=== PATIENT | female | born 1950 | race Caucasian/White ===

== ENCOUNTER 2017-01-26 04:07 | Emergency (ER) | payer OTHER ==
[~2017-01-26] VITALS: Ht 152.4 cm; Wt 76.2 kg
[~2017-01-26 04:07] MED LIST: ACETAMINOPHEN325 M1 PO; ASA5UEC PO; ASPIRIN325 PO; ASPIRIN81 M2 PO; BENADRYL25 MG PO; BREO ELLIPTA 11 EACH IH; CLARITIN10 MG PO; CLOPIDOGREL75 MG PO; COLACE100 MG PO; EFFIENT10 MG PO; KEFLEX500 MG PO; LIPITOR80 MG PO; LISINOPRIL10 MG PO; LISINOPRIL20 MG PO; LOPRESSOR PO; LOPRESSOR25 PO; LOVASTATIN 20 M20 MG PO; MEDROLDOSEPACK PO; METOPROLOL SUCC25 M1 PO; NITRO-DUR 10 C0.2 M1 TRANSDERM; NITROGLYCERIN0.4 MG SUBLING; NORVASC 5 MG TAB5 MG PO; NORVASC5 MG PO; PEPCID20 MG PO; PEPCID40 MG PO; PREDNISONE 10 M10 MG PO; TOPROL XL25 MG PO; TUDORZA PRESS400 MCG IH; ULTRAM 50MG TAB50 MG PO; ZOCOR PO
[2017-01-26] MEDS ORDERED: SPIRIVA (04:19)
[2017-01-26] MEDS ORDERED: LOPRESSOR50 (04:21)
[2017-01-26] MEDS ORDERED: NORVASC10 MG PO (04:22)
[2017-01-26] MEDS ORDERED: LASIX 20 MG TAB20 MG PO (04:23)
[2017-01-26 04:50] LABS: URINE BILIRUBIN NEGATIVE (Negative); URINE BLOOD 1+ (Negative); URINE COLOR YELLOW; URINE GLUCOSE-RANDOM* NEGATIVE (Negative); URINE KETONES NEGATIVE (Negative); URINE LEUKOCYTES-REFLEX 1+ (Negative); URINE PROTEIN (DIPSTICK) NEGATIVE (Negative); URINE UROBILINOGEN 0.2 E.U./dl (0.2-1.0)
[2017-01-26 05:19] LABS: CASTS None Seen /LPF (None Seen); CRYSTALS None Seen /LPF (None Seen); SQUAMOUS None Seen /LPF (0-3); URINE RBC 3-10 Few /HPF (0-2); URINE WBC-REFLEX 6-15 Few /HPF (0-5)
[2017-01-26 05:28] LABS: ABSOLUTE NEUTROPHILS 7.7 thou/uL (1.4-8.2); BASOPHILS 1.1 % (0.0-2.0); HEMOGLOBIN 12.3 gm/dL (12.0-15.0); LYMPHOCYTES 15.3 % (24.0-44.0); MCH 27.5 pg (26.0-34.0); MCHC 33.2 g/dL (28.0-37.0); MCV 82.9 fL (80.0-100.0); MONOCYTES 11.6 % (1.0-8.0); PLATELET COUNT 286 thou/uL (150-400); RBC 4.47 mil/uL (4.20-5.00); RDW 14.1 % (10.5-14.5); WBC 11.2 thou/uL (4.0-11.0)
[2017-01-26 05:30] LABS: MANUAL DIFF NO
[2017-01-26 05:40] LABS: ALBUMIN 3.4 g/dL (3.4-5.0); ALKALINE PHOSPHATASE 89 U/L (46-116); ANION GAP 9 mmol/L (7-16); BUN 27 mg/dL (7-18); CALCIUM 10.2 mg/dL (8.5-10.1); CHLORIDE 102 mmol/L (98-107); CO2 29 mmol/L (21-32); CREATININE 2.1 mg/dL (0.6-1.3); DIRECT BILIRUBIN < 0.1 mg/dL (<0.1-0.3); GLUCOSE 149 mg/dL (70-99); POTASSIUM 4.1 mmol/L (3.5-5.1); SGOT 18 U/L (15-37); SGPT 15 U/L (30-65); SODIUM 140 mmol/L (136-145); TOTAL BILIRUBIN 0.3 mg/dL (<0.1-1.0); TOTAL PROTEIN 7.9 g/dL (6.4-8.2)
[2017-01-26] MEDS ORDERED: PHENERGAN 25 MG25 M1 PO (07:12)
[2017-01-26] MEDS ORDERED: ZOFRAN ODT4 MG PO (07:12)
[2017-01-26] MEDS ORDERED: NORCO 5-325 TA1 EACH PO (07:12)
== END 2017-01-26 07:25 | disposition home or self-care (01) ==
LOC: ER 04:07
PROVIDERS: Emergency Medicine
DX: N28.9 Disorder of kidney and ureter, unspecified (principal); Z98.890 Other specified postprocedural states; Z90.710 Acquired absence of both cervix and uterus; Z95.1 Presence of aortocoronary bypass graft; J44.9 Chronic obstructive pulmonary disease, unspecified; Z88.8 Allergy status to other drugs, medicaments and biological substances; Z88.0 Allergy status to penicillin; Z88.2 Allergy status to sulfonamides; I25.2 Old myocardial infarction; Z91.040 Latex allergy status; F17.210 Nicotine dependence, cigarettes, uncomplicated

== ENCOUNTER 2017-02-08 12:43 | Emergency (ER) | payer OTHER ==
[~2017-02-08] VITALS: Ht 152.4 cm; Wt 75.8 kg
[~2017-02-08 12:43] MED LIST changes: +LASIX 20 MG TAB20 MG PO; +LOPRESSOR50; +NORCO 5-325 TA1 EACH PO; +NORVASC10 MG PO; +PHENERGAN 25 MG25 M1 PO; +SPIRIVA; +ZOFRAN ODT4 MG PO
[2017-02-08] MEDS ORDERED: PRILOSEC 20 MG20 MG PO (12:55)
[2017-02-08] MEDS ORDERED: ASPIRIN81 M2 PO (12:56)
== END 2017-02-08 14:08 | disposition home or self-care (01) ==
LOC: ER 12:43
DX: H11.31 Conjunctival hemorrhage, right eye (principal); I25.2 Old myocardial infarction; G56.03 Carpal tunnel syndrome, bilateral upper limbs; J44.9 Chronic obstructive pulmonary disease, unspecified; Z90.710 Acquired absence of both cervix and uterus; Z95.1 Presence of aortocoronary bypass graft; Z90.49 Acquired absence of other specified parts of digestive tract; Z88.1 Allergy status to other antibiotic agents; Z88.2 Allergy status to sulfonamides; Z91.040 Latex allergy status; Z87.891 Personal history of nicotine dependence

== ENCOUNTER 2018-03-28 08:55 | Inpatient (IN) | payer OTHER ==
[~2018-03-28] VITALS: Ht 152.4 cm; Wt 75.7 kg
--- NOTE | ~2018-03-28 | EKG ---
[place] [address] [facility] [place] [address] ELECTROCARDIOGRAM REPORT Name: MARTAMARY Room #: 209-P ADM IN .R.#: [id number] Admission: 03/28/18 Attend Phys: Joshua Cummins MD Discharge: Date of : 50 Report #: [id number] THIS REPORT FOR: //name// [facility] ED Test Date: 2018-03-28 Test Time: 09:03:39 Pat Name: MARY LOZANO Department: Room: Gender: F [employer]: at : 1950 Requested By: Miroslava Polo Order Number: [id number] MD: Dario Rocha Measurements Intervals [place] Rate: 151 P: CT: QRS: -167 QRSD: 118 T: 27 QT: 306 QTc: 486 Interpretive Statements Atrial fibrillation with rapid V-rate RBBB and LPFB Baseline wander in lead(s) I,II,aVR Compared to ECG 07/08/2016 06:57:27 atrial fibrillation has replaced sinus rhythm ST and T wave abnormality is less pronounced Electronically Signed On 03-28-2018 16:27:14 CDT by Dario Rocha [email or web address] <ELECTRONICALLY SIGNED> By: Dario Rocha MD, [facility] 03/28/18 1627 Dario Rocha MD, [facility] /EPI
--- NOTE | ~2018-03-28 | P ---
[facility] [place] [address] PROCEDURE REPORT Name: JACEY LOZANOEZ Morales Room #: 209-P [facility] IN ..#: [id number] Admission: 03/28/18 Attend Phys: Joshua Cummins MD Discharge: Date of : 50 Report #: [id number] THIS REPORT FOR: //name// CC: Tuan Leung BRIEF HISTORY: The patient is a 68-year-old woman with a history of colon cancer resection 10 years ago. She presented with microcytic anemia. CT reveals an abnormal appearance at the level of the ileocolonic anastomosis with regional adenopathy. PREOPERATIVE DIAGNOSIS: History of colon cancer with anemia. POSTOPERATIVE DIAGNOSES: 1. Ulcerated mass lesion ileocolonic anastomosis. 2. Moderate sigmoid diverticulosis coli. MEDICATIONS: Deep sedation with propofol per anesthesia. SPECIMEN: Biopsies of ulcerated mass ileocolonic anastomosis. ESTIMATED BLOOD LOSS: 3 mL. PROCEDURE: Colonoscopy to the ileocolonic anastomosis and ileum with biopsy. FINDINGS: Prior to propofol sedation, procedure of colonoscopy discussed with the patient as well as potential risks and its complications. She indicates she understands and desires to proceed. With the patient in the left lateral decubitus position, digital examination was completed which revealed no abnormalities. Subsequently, the GetJari video colonoscope was introduced in the rectum, advanced under direct vision to the ileocolonic anastomosis. I was able to advance the scope into the ileum and see normal ileal mucosa. At that point, the scope was slowly withdrawn and careful circumferential views were obtained. We withdrew the scope back into the colon and she had an ulcerative mass lesion just distal to the anastomosis, which was ulcerated and filled about one-third of the lumen involving about one-half of the circumference of the colon. It was essentially ulcerated and multiple biopsies were obtained. Active bleeding was not seen. As we withdrew the scope, the prep was generally good. The mucosa was within normal limits, normal vascular pattern and normal light reflex. No additional neoplastic changes were seen. However, in the sigmoid colon, there was noted be moderate to severe diverticular disease without endoscopic evidence of diverticulitis. The scope was withdrawn in the rectum. Upon retroflexion, no abnormalities were seen. The scope was withdrawn. The patient tolerated the procedure well. [address] [address] PROCEDURE REPORT Name: MARTAMARY Room #: 209-P [facility] IN ..#: [id number] Admission: 03/28/18 Attend Phys: Joshua Cummins MD Discharge: Date of : 50 Report #: [id number] DISPOSITION: The patient with history of colon cancer and microcytic anemia. 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 We will follow up on biopsies. The patient will likely need surgical intervention. The patient reports last colonoscopy was about 5 years. I do not have those records. Withdrawal time after biopsy from the anastomosis was 5 minutes and 6 seconds. <ELECTRONICALLY SIGNED> By: Temo Watts MD 04/03/18 1046 1357 2331 Temo Watts MD /nt
--- NOTE | ~2018-03-28 | 2DMMODE ---
[facility] [address] [place] [address] 2 D/M-MODE ECHOCARDIOGRAM Name: MARY LOZANO Room #: 209-P [facility] IN [facility]#: [id number] Admission: 03/28/18 Attend Phys: Joshua Cummins MD Discharge: Date of : 50 Date of Service: 03/28/18 1702 Report #: [id number] THIS REPORT FOR: //name// APPROVED REPORT Study performed: 03/28/2018 14:51:30 EXAM: Comprehensive 2D, Doppler, and color-flow Echocardiogram Patient Location: Bedside Room #: 209 Status: routine BSA: 1.72 HR: 100 bpm BP: 149/71 mmHg Rhythm: Atrial Fibrillation Other Information Study Quality: Adequate Indications Afib. Hx: MN, stents, CABG, COPD, HTN, HLP, DM 2D Dimensions RVDd: 36.53 mm LVEF(%): 58.74 (>50%) IVSd: 11.79 (7-11mm) LVOT Diam: 19.36 (18-24mm) LVDd: 45.66 mm PWd: 11.92 (7-11mm) Ascending Ao: 29.72 (22-36mm) LVDs: 31.52 (25-40mm) Aortic Root: 30.05 mm Corona's LVEF: 58.74 % Volumes Left Atrial Volume (Systole) Single Plane 4CH: 38.28 mL Single Plane 2CH: 37.61 mL LA ESV Index: 24.00 mL/m2 Aortic Valve AoV Peak Rajendra.: 1.61 m/s AO Peak Gr.: 12.71 mmHg LVOT Max P.88 mmHg LVOT Max V: 0.98 m/s LIYA Vmax: 1.79 cm2 Mitral Valve MV Decel. Time: 153.75 ms MV E Max Rajendra.: 1.20 m/s [facility] [place] [address] 2 D/M-MODE ECHOCARDIOGRAM Name: MARY LOZANO Room #: 209-P [facility]#: [id number] Admission: 03/28/18 Attend Phys: Joshua Cummins MD Discharge: Date of : 50 Date of Service: 03/28/18 1702 Report #: [id number] Pulmonary Valve PV Peak Rajendra.: 1.14 m/s PV Peak Gr.: 5.23 mmHg Tricuspid Valve TR Peak Rajendra.: 2.70 m/s RAP Estimate: 5.00 mmHg TR Peak Gr.: 28.00 mmHg PA Pressure: 33.00 mmHg Left Ventricle The left ventricle is normal size. Basal inferior hypokinesis, otherwise normal Mild concentric left ventricular hypertrophy. Left ventricular systolic function is normal. LVEF is 55-60%. This study is not technically sufficient to allow evaluation of the LV diastolic function due to atrial fibrillation. Right Ventricle The right ventricle is normal size. The right ventricular systolic function is normal. Atria The left atrium size is normal. The right atrium size is normal. Aortic Valve Aortic valve is mildly calcified. No aortic regurgitation is present. There is no aortic valvular stenosis. Mitral Valve The mitral valve is normal in structure. Mild mitral annular calcification. Trace mitral regurgitation. Tricuspid Valve The tricuspid valve is normal in structure. Mild to moderate tricuspid regurgitation. Estimated PAP is 30-35mmHg. Pulmonic Valve The pulmonary valve is normal in structure. Trace pulmonic regurgitation. Great Vessels The aortic root is normal in size. The ascending aorta is normal in size. IVC is normal in size and collapses >50% with inspiration. Pericardium [address] [address] 2 D/M-MODE ECHOCARDIOGRAM Name: MARY LOZANO Room #: 209-P [facility] IN ..#: [id number] Admission: 03/28/18 Attend Phys: Joshua Cummins MD Discharge: Date of : 50 Date of Service: 03/28/18 1702 Report #: [id number] There is no pericardial effusion. <Conclusion> LVEF is 55-60%. Basal inferior hypokinesis, otherwise normal Mild concentric left ventricular hypertrophy. Aortic valve is mildly calcified. No aortic regurgitation is present. There is no aortic valvular stenosis. Trace mitral regurgitation. <ELECTRONICALLY SIGNED> By: Enrike Galaviz MD, [facility] 03/28/181701 01 01 Enrike Galaviz MD, FAC /INF
--- NOTE | ~2018-03-28 | HC ---
[facility] [place] [address] CONSULTATION Name: MARY LOZANO Andrew Room #: 209-P ADM IN .R.#: [id number] Admission: 03/28/18 Attend Phys: Joshua Cummins MD Discharge: Date of : 50 Report #: [id number] THIS REPORT FOR: //name// CC: Tuan Cummins DATE OF SERVICE: 03/28/2018 Inpatient Consultation PRIMARY CARE PHYSICIAN: Tuan Vidales DO DOCUMENT IMPROVEMENT SPECIALIST: Bossman Nicole MD, [facility] REASON FOR CONSULTATION: AFib, preop endoscopy. HISTORY OF PRESENT ILLNESS: The patient is a 68-year-old female with a history of prior bypass surgery, presented with atrial fibrillation, heart rates in the 160s and dyspnea. She was noted to be in atrial fibrillation. She has a right bundle-branch block, baseline ECG abnormality. She was admitted for treatment of this and was found to be anemic and ultimately her CT scan of the abdomen demonstrated irregular thickening at the ileocolic anastomosis to the prior site of colon cancer and there was adenopathy noted. We are asked to see her because she will likely require endoscopy. Clinically, she denies abdominal pain. She denies melena or hematochezia. From a cardiovascular standpoint, she has been short of breath with activity. She denies chest pain or pressure. She denies palpitations or heart racing type symptoms. She has no documented history of stroke or TIA. Denies neuro symptoms, slurred speech, numbness or weakness. PAST MEDICAL HISTORY: Significant for the following: Coronary artery disease, status post bypass surgery in 2010, prior PCI in 2014 with drug-eluting stent placed at that time and then separately again in 2015, she had a PCI to her [place] right coronary artery. The vein graft to the diagonal was noted to be chronically occluded. She was anticoagulated only with aspirin at the time of presentation. She has hypertension, hyperlipidemia, and obesity as above, prior history of colon cancer. PAST SURGICAL HISTORY: Prior colectomy bypass surgery, hand surgery, hysterectomy. [address] [address] CONSULTATION Name: MARY LOZANO Room #: 209-P [facility] IN ..#: [id number] Admission: 03/28/18 Attend Phys: Joshua Cummins MD Discharge: Date of : 50 Report #: [id number] She is type 2 diabetic. ALLERGIES: She has allergies to PLAVIX, which is hives; PENICILLIN, PREDNISONE - hives. BRILINTA made her short of breath. ZOLPIDEM makes her have hives. CELEBREX, LATEX, and SULFA also give her itching. HOME MEDICATIONS: Currently, she is on aspirin, garlic, lisinopril 20 mg p.o. b.i.d., Lopressor 25 mg p.o. b.i.d., nitroglycerin p.r.n., Prilosec 40 mg daily, Januvia 50 mg daily, atorvastatin 40 mg daily; and HCTZ/triamterene 37.5/25 mg daily. REVIEW OF SYSTEMS: GASTROINTESTINAL: No abdominal pain, nausea, vomiting, hematemesis or melena. HEMATOLOGIC: Positive history of mild anemia. RENAL: No history of kidney failure. ENDOCRINE: Positive diabetes, positive hypertension, positive hyperlipidemia. CARDIOVASCULAR: No chest pain. No palpitations. Positive dyspnea on exertion. No orthopnea, no PND. No edema. MUSCULOSKELETAL: No falls. HEMATOLOGIC: No anemia or bleeding disorders. NEUROLOGIC: Denies visual changes, numbness, weakness or slurred speech. ALLERGIES: As noted above, numerous cutaneous allergies. PHYSICAL EXAMINATION: VITAL SIGNS: Blood pressure is 135/61, pulse is 104. She is in atrial fibrillation on the potline monitor, temperature is 37.4. GENERAL: Pleasant elderly female. She is alert, oriented, no apparent distress. HEENT: Eyes: EOMs intact. No facial asymmetry. NECK: Supple. No jugular venous distention. CARDIOVASCULAR: Irregular. I cannot hear murmur. LUNGS: Clear to auscultation bilaterally. There are no wheezes or rales. ABDOMEN: Nontender, nondistended. EXTREMITIES: No peripheral edema. SKIN: Warm and dry. PSYCHIATRIC: The patient has appropriate mood and affect. No focal deficits. DIAGNOSTIC DATA: Electrocardiogram demonstrates atrial fibrillation with a right ventricular branch, conduction abnormality. DATA: Hemoglobin is 10.2, white blood count is 18.6, platelet count 333,000. Sodium is 140, potassium is 3.8, chloride is 106, BUN is 8, creatinine 0.9, A1c is 7.5, lactic acid is 1.0. AST is 13, ALT is 24. CT scan of the abdomen demonstrated concern for splenic infarct and there is [address] [address] CONSULTATION Name: MARY LOZANO Room #: 209-P [facility] IN M.R.#: [id number] Admission: 03/28/18 Attend Phys: Joshua Cummins MD Discharge: Date of : 50 Report #: [id number] also erratic irregular thickening of the ascending colon just superior and medial to the ileocolic anastomosis with lymphadenopathy concerning for metastatic disease and colon neoplasm. Cardiac troponin level IS 0.04. Hemoglobin is 10.2. Chest x-ray shows minor left basilar lateral stranding. IMPRESSION: 1. Atrial fibrillation with rapid ventricular response. She has been dyspneic on presentation, but with rate control, this has stabilized. She is currently on IV Cardizem drip, which is okay to continue to be titrated during endoscopy, but I will go ahead and start her on oral Cardizem if she is able to take p.o. At this point in time, there are no plans for cardioversion and we will continue with rate control strategy. 2. Coronary artery disease. She is status post coronary artery bypass graft and subsequent percutaneous coronary intervention, but denies any angina type symptoms. We will continue with medical therapy for this. 3. Status post coronary artery bypass graft. Historically, she has normal left ventricular function. She presents with no evidence of congestive heart failure. I would like to continue baby aspirin at some point. 4. Right bundle-branch block, this is chronic. 5. Preoperative colon endoscopy. I would estimate her to be relatively low risk for endoscopy. 6. Anticoagulation. Her CHADS-VASc score is 4 and she represents a high stroke risk and she has evidence of splenic infarct. I will like to do a conservative Lovenox bridge prior to endoscopy if it is going to be more than a couple of days. Ultimately, I think she should be on Eliquis. 7. Colon cancer abnormality. As noted above, there is concern that there may be a return of her previously treated malignancy. <ELECTRONICALLY SIGNED> By: Enrike Galaviz MD, [facility] 04/03/18 0930 1642 002 Enrike Galaviz MD, FACC /nt
--- NOTE | ~2018-03-28 | HC ---
[facility] [place] [address] CONSULTATION Name: MARY LOZANO Room #: 209-P [facility] IN ..#: [id number] Admission: 03/28/18 Attend Phys: Joshua Cummins MD Discharge: Date of : 50 Report #: [id number] THIS REPORT FOR: //name// CC: Tuan Cummins DATE OF SERVICE: 04/02/2018 HISTORY OF PRESENT ILLNESS: This patient seen in consultation in regard to possible recurrent colon cancer. She presented to the emergency room with findings of tachycardia and was found to be anemic and in atrial fibrillation. In evaluation of her anemia, CAT scan was performed, which showed irregular thickening at the ileocolic anastomosis and a prior site of colon cancer resection. In addition, there was increased lymphadenopathy. She was unaware of any noted GI blood loss. In 2007, she underwent a colon resection by Dr. Martin and was seen in consultation by Dr. Lozano who did not recommend adjuvant therapy. She was not seen subsequently in followup and to her knowledge, she has not had serial CEAs performed. She did undergo colonoscopy some 4 years ago, which she states removed a polyp, but was not showing any evidence of malignancy. PAST MEDICAL HISTORY: Also positive for coronary artery disease with previous bypass grafting and a drug-eluting stent placed in 2015. She has medically managed hypertension and hyperlipidemia. She has exogenous obesity and prior hysterectomy along with hand surgery. ALLERGIES: PLAVIX, PENICILLIN, BRILINTA, ZOLPIDEM, CELEBREX, LATEX, AND SULFA. MEDICATIONS: As listed on the MFR. REVIEW OF SYSTEMS: Negative for any noted abdominal pain or blood loss. She was again found to be anemic on presentation to the emergency room. Remaining system review is negative. PHYSICAL EXAMINATION: GENERAL: Shows her to be normotensive. She is alert and is walking in her room/sitting in a chair. NECK: Supple. CHEST: Clear. CARDIOVASCULAR: Shows a regular rhythm. ABDOMEN: Shows no evidence of palpable mass or ascites. EXTREMITIES: No clubbing, cyanosis or edema. SKIN: Normal turgor. NEUROLOGIC: No focal localizing signs. [facility] [address] [place] [address] CONSULTATION Name: MARY LOZANO Room #: 209-P [facility] IN [facility].#: [id number] Admission: 03/28/18 Attend Phys: Joshua Cummins MD Discharge: Date of : 50 Report #: [id number] PSYCHIATRIC: Not agitated or confused. LABORATORY DATA: Hemoglobin 10 grams. IMAGING DATA: CT scan shows thickening of the ascending colon at the ileocolic anastomosis with associated lymphadenopathy. 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 PLAN: Await the results of her earlier colonoscopy regarding a tissue diagnosis. Once confirmed, we will submit tissue for further testing including KRAS and BRAF mutations along with MSI. I will track down her initial pathology, but assumed that she was not a stage III based on her earlier recommendations. Further staging will be performed and full and further recommendations will be forthcoming. Thanks again for asking us to participate in her care and allowing me to see her in consultation. <ELECTRONICALLY SIGNED> By: Laura Fischer MD 04/03/18 1450 2019 0244 Laura Fischer MD /nt
--- NOTE | ~2018-03-28 | EKG ---
[address] [address] ELECTROCARDIOGRAM REPORT Name: MARTAMARY Room #: 209-P ADM IN M.R.#: [id number] Admission: 03/28/18 Attend Phys: Joshua Cummins MD Discharge: Date of : 50 Report #: [id number] THIS REPORT FOR: //name// [facility] Test Date: 2018-03-30 Test Time: 09:50:35 Pat Name: MARY LOZANO Department: Room: 209 P Gender: F [employer]elry [employer] Maker: K[place]IN : 1950 Requested By: Bossman Nicole Order Number: [id number] MD: Dany Marinelli Measurements Intervals [place] Rate: 54 P: -41 SC: 109 QRS: 63 QRSD: 139 T: 57 QT: 648 QTc: 615 Interpretive Statements Sinus rhythm Right bundle branch block Nonspecific T abnormalities, lateral leads Compared to ECG 03/28/2018 09:03:39 Atrial fibrillation no longer present Left posterior fascicular block no longer present Electronically Signed On 03-31-2018 8:11:37 CDT by Dany Marinelli [email or web address] <ELECTRONICALLY SIGNED> By: Dany Marinelli MD 03/31/18 0811 0950 0950 Dany Marinelli MD /EPI
--- NOTE | ~2018-03-28 | PATH ---
[facility] [address] [place] [address] PATHOLOGY RPT PROCEDURE Name: JACEY LOZANOEZ Morales Room #: 209-P [facility] IN M.R.#: [id number] Admission: 03/28/18 Date of : 50 Discharge: 04/04/18 Report #: [id number] Path Case #: [id number] [facility] Accession Number: [id number] . 01 Material submitted: . ULCERATED MASS BIOPSY AT ANASTAMOSIS . 01 Clinical history: . Pre-OP DX: Hx colon cancer Post-OP DX: Ulcerated mass at anastomosis and diverticulosis . 02 Diagnosis: "Ulcerated mass biopsy at the anastomosis", biopsy: - COLONIC MUCOSA WITH INVASIVE POORLY-DIFFERENTIATED CARCINOMA (SEE COMMENT). [facility]/04/02/2018 . 02 Comment: Sections show fragments of colonic mucosa with reactive changes. There is involvement by an invasive very poorly-differentiated carcinoma. Ulceration and necrosis are identified. Properly-controlled immunohistochemical stains are performed. . Block A1: AE1/AE3: tumor cells reactive CD45: tumor cells non-reactive CD56: tumor cells non-reactive Synaptophysin: tumor cells non-reactive CK7: very rare tumor cells reactive CK20: tumor cells non-reactive CDX2: tumor cells non-reactive . The patient has a history of "ubsauoyw-wh-jlnxjy differentiated adenocarcinoma with focal necrosis and ulceration" from a previous cecal mass biopsy ([id number]). At that time, the tumor cells were negative for CK7, CK20, CDX2 and ER/UT. Clinical and endoscopic correlation is required. The H and E stained slide is co-reviewed with Dr. Ana María Posey. The case is discussed with Dr. Delisa Palencia and Dr. Laura Fischer on 04/03/2018 at approximately 1:15 PM. . (CLW:brigido; 04/02/2018) . 02 Addendum: . The biopsy material is compared to the previous/remote colon cancer biopsy and resection slides ([id number], [id number]) and the tumor is morphologically similar to the patient's previous diagnosis. . [address] [address] PATHOLOGY RPT PROCEDURE Name: IRIS LOZANO Room #: 209-P DIS IN M.R.#: [id number] Admission: 03/28/18 Date of : 50 Discharge: 04/04/18 Report #: [id number] Path Case #: [id number] At the request of Dr. Laura Fischer, oncologist, mismatch repair (MMR) protein immunohistochemical staining was performed. . Specimen: Formalin fixed paraffin embedded tissue Specimen ID: [id number], Block A1 Reason for testing:To evaluate for evidence of defective mismatch repair proteins. Method: Immunohistochemical staining for the presence or absence of protein expression of one or more of the following MMR protein markers: MLH1, MSH2, MSH6 and PMS2. Tumor type: Invasive poorly differentiated carcinoma . Results: MLH1 - Lost MSH2 - Preserved MSH6 - Preserved PMS2 - Lost . Mismatch Repair Status: MMR Deficient (MMR-D) . Interpretation: . (MMR-D) The absence of expression for one or more MMR protein markers within tumor cells is suggestive for defective mismatch repair function often associated with microsatellite instability (MSI). MMR testing by IHC is a screening test and MMR-D cases require confirmation and additional workup by molecular based methodologies. Suggest clinical correlation and follow up to establish the need for potential genetic testing, recurrence risk evaluation and treatment options. . These test results are designed for screening purposes only and are useful tools in identifying cancer patients that are more likely to have Carlson Syndrome related diagnoses. Tests should be interpreted in the context of clinical findings, family history and laboratory data. Abnormal IHC results for MMR protein expression are not considered diagnostic for Carlson Syndrome. . The final diagnosis remains unchanged. (CLW:; 04/08/18) . Professional services performed by [employer] at [facility], [address] [place], [place] [address], [place] [address]. Technical services performed by [employer] at [address] [place] [address], [address], [place] [address]. QRQ/04/08/2018 Addendum Electronically Signed by Sandra Zaragoza MD, Pathologist . 02 Electronically signed: . Sandra Zaragoza MD, Pathologist [facility] [address] [place] [address] PATHOLOGY RPT PROCEDURE Name: IRIS LOZANO Room #: 209-P DIS IN M.R.#: [id number] Admission: 03/28/18 Date of : 50 Discharge: 04/04/18 Report #: [id number] Path Case #: [id number] NPI- [id number] . 01 Gross description: . Received in formalin labeled "Iris Lozano, ulcerated mass biopsy at anastomosis," are multiple segments of rowe soft tissue measuring 1.9 x 0.6 x 0.2 cm in aggregate dimensions. The specimen is filtered and submitted entirely in cassette A1. (TSD; 04/01/2018) TOB/TOB . 02 Pathologist provided ICD-10: C18.9 . 02 CPT . 092886, O07327, H26131 Performed at: [address], [place], [place] [id number] MD Roel Case MD Phone: [phone] Performed at: [address] [id number] MD Ana María Posey MD Phone: [phone]
--- NOTE | ~2018-03-28 | HC ---
[facility] [place] [address] CONSULTATION Name: JACEY LOZANOEZ Morales Room #: 209-P ADM IN .R.#: [id number] Admission: 03/28/18 Attend Phys: Joshua Cummins MD Discharge: Date of : 50 Report #: [id number] THIS REPORT FOR: //name// CC: Tuan Cummins INFECTIOUS DISEASE CONSULTATION REASON FOR CONSULTATION: I was asked to evaluate concerning leukocytosis. HISTORY OF PRESENT ILLNESS: The patient was a 68-year-old who has had recurring urinary tract infection and vaginitis symptoms over the past year, has been treated with multiple courses of antibiotics. She had similar symptoms this past week and presented to the outpatient clinic, where she was found to be in atrial fibrillation with rapid ventricular response. She had heart rates in the 160s. She was admitted and had rate control established. No fever, chills or sweats until last evening, had temperature up to 100 degrees. She has been evaluated for her dysuria with urinalysis, which showed mixed jacoby along with Trichomonas. She has been treated with ceftriaxone and metronidazole over the last several days. Overall, she feels some better. Drainage has diminished. Her urinary frequency has diminished. CT scan of the abdomen showed evidence of splenic and right renal infarcts along with thickening of the ascending colon, just superior and medial to the ileocolonic anastomosis that she had in 2007 following resection for colon cancer. No adjuvant chemotherapy at that time. Followup colonoscopies had been stable. She does have diverticular disease. In 2010, she had a laparoscopic cholecystectomy without complication. The patient denies any abdominal pain. She has had some nausea episodes and she had a gastric emptying study performed. No diarrhea. No blood in her stools. She had a colonoscopy, which showed an ulcerative lesion at the ileocolonic anastomosis. Biopsies were performed and are pending. She did have a significant amount of thickening and inflammatory reaction along with adenopathy in that region on CAT scan. The patient denies any significant cough or sputum production. No headache or sinus congestion. No oral lesions. No back or flank pain. No ongoing dysuria or vaginal discharge at this time. She had no rash or adenopathy noted. No joint pains or neurologic issues. ALLERGIES: SULFA, PENICILLIN, PLAVIX, CELEBREX, LATEX, AMBIEN AND HYDROCHLOROTHIAZIDE. MEDICATIONS: As noted on DEC, including ceftriaxone and metronidazole. PAST MEDICAL HISTORY: Diabetes; hypertension; hyperlipidemia; coronary artery disease, status post stenting and coronary bypass grafting; cholelithiasis, status post cholecystectomy; recurring urinary tract infections; COPD; diverticulosis and diverticulitis; and colon cancer as noted above, status post colon [place] [address] CONSULTATION Name: MARY LOZANO Room #: 209-P [facility] IN M.R.#: [id number] Admission: 03/28/18 Attend Phys: Joshua Cummins MD Discharge: Date of : 50 Report #: [id number] FAMILY HISTORY: Noncontributory. SOCIAL HISTORY: Past smoker. No significant alcohol intake. . No known HIV risk factors. REVIEW OF SYSTEMS: Noted above. PHYSICAL EXAMINATION: VITAL SIGNS: Afebrile and hemodynamically stable. GENERAL: She was alert and cooperative. No acute distress. She was ambulatory. HEENT: Unremarkable, other than dentures. NECK: Supple. LUNGS: Clear. HEART: Regular, without appreciable murmur, gallop or rub. ABDOMEN: Soft, nontender. No hepatosplenomegaly or mass. GENITOURINARY: Perianal evaluation unremarkable. Vaginal examination not performed. EXTREMITIES: Unremarkable. NEUROLOGICAL EXAMINATION: Nonfocal. LABORATORY STUDIES: CT scan as noted with changes described above. Gastric emptying study significant delayed study. Chest x-ray on admission, mild left basilar stranding atelectasis. CT scan of the chest pending. Blood cultures negative. Urine culture, normal jacoby. Sodium 138, potassium 3.9, bicarbonate 28 and creatinine 0.7. AST 46, bilirubin normal, alkaline phosphatase normal and ALT 74. Hemoglobin 9; WBC 23.9, noting that she had a white count of 18.6 on admission and platelet count 338,000. Differential several days ago showed 81% segs, 8% lymphs and 8% eosinophils. CEA 2.6. CA 19-9 of 8. Urinalysis, pyuria, bacteriuria and Trichomonas present. IMPRESSION: A 68-year-old with new-onset atrial fibrillation along with suspected metastatic recurrent colon cancer, awaiting pathology report with multiple emboli, including spleen and right kidney. Recurring cystitis and vaginal Trichomonas. Leukocytosis, I suspect, is multifactorial, possibly related to recent infarct or colon process. We will await CT scan report. Continue with oral antibiotic therapy to cover intestinal tract as well as urinary tract and Trichomonas. Would observe another 24 hours and repeat her CBC. The patient has had no active diarrhea reported to suggest new-onset C. difficile colitis. Would also treat any of the patient's sexual partners if appropriate with 2 [facility] [address] [place] [address] CONSULTATION Name: JACEY LOZANOEZ Morales Room #: 209-P [facility] IN ..#: [id number] Admission: 03/28/18 Attend Phys: Joshua Cummins MD Discharge: Date of : 50 Report #: [id number] grams of metronidazole. Abstain from any sexual activity for a week after treatment. <ELECTRONICALLY SIGNED> By: Miguel Savage MD 04/04/18 0916 1143 1434 Miguel Savage MD /nt
[~2018-03-28 08:55] MED LIST changes: +PRILOSEC 20 MG20 MG PO
[2018-03-28 08:57] VITALS: BP 154/75
[2018-03-28 09:18] LABS: HEMOGLOBIN 10.2 gm/dL (12.0-15.0); MCH 24.5 pg (26.0-34.0); MCV 76.5 fL (80.0-100.0); PLATELET COUNT 333 thou/uL (150-400); RBC 4.18 mil/uL (4.20-5.00); RDW 15.6 % (10.5-14.5); WBC 18.6 thou/uL (4.0-11.0)
[2018-03-28 09:29] LABS: ANION GAP 9 mmol/L (7-16); BUN 8 mg/dL (7-18); CALCIUM 9.4 mg/dL (8.5-10.1); CHLORIDE 102 mmol/L (98-107); CO2 27 mmol/L (21-32); CREATININE 0.9 mg/dL (0.6-1.0); GLUCOSE 226 mg/dL (74-106); POTASSIUM 3.9 mmol/L (3.5-5.1); SODIUM 138 mmol/L (136-145)
[2018-03-28 09:37] LABS: DIRECT BILIRUBIN 0.2 mg/dL (<0.1-0.3); LIPASE 66 U/L (73-393); SGOT 13 U/L (15-37); SGPT 24 U/L (30-65); TOTAL BILIRUBIN 0.5 mg/dL (<0.1-1.0); TOTAL PROTEIN 7.4 g/dL (6.4-8.2); TROPONIN-I < 0.04 ng/mL (<0.06)
[2018-03-28 09:51] LABS: ABSOLUTE NEUTROPHILS 13.6 thou/uL (1.4-8.2); ANISOCYTOSIS 1+; POLYCHROMASIA OCCASIONAL
[2018-03-28 11:58] LABS: INR 1.1; PROTIME 10.8 Seconds (9.3-11.4)
[2018-03-28 12:26] LABS: URINE BILIRUBIN NEGATIVE (Negative); URINE BLOOD TRACE (Negative); URINE CLARITY CLEAR; URINE COLOR YELLOW; URINE GLUCOSE-RANDOM* NEGATIVE (Negative); URINE KETONES NEGATIVE (Negative); URINE NITRITE-REFLEX NEGATIVE (Negative); URINE PROTEIN (DIPSTICK) NEGATIVE (Negative); URINE SPECIFIC GRAVITY <= 1.005 (1.005-1.035); URINE UROBILINOGEN 0.2 E.U./dl (0.2-1.0)
[2018-03-28 12:27] LABS: URINE LEUKOCYTES-REFLEX 2+ (Negative)
[2018-03-28 12:35] LABS: SQUAMOUS >10 Many /LPF (0-3)
[2018-03-28 12:37] LABS: CASTS None Seen /LPF (None Seen); CRYSTALS None Seen /LPF (None Seen); URINE RBC 3-10 Few /HPF (0-2)
[2018-03-28] MEDS ORDERED: JANUVIA 50 MG T50 MG PO (13:46)
[2018-03-28] MEDS ORDERED: ATORVASTATIN CA40 MG PO (13:56)
[2018-03-28 15:55] VITALS: BP 135/61
[2018-03-28 17:26] VITALS: BP 127/83
[2018-03-28 19:13] VITALS: BP 143/60
[2018-03-28 19:29] VITALS: BP 143/60
[2018-03-29 00:09] VITALS: BP 150/45
[2018-03-29 01:10] LABS: GLYCOHEMOGLOBIN (HGB A1C) 7.6 % (4.8-5.6)
[2018-03-29 04:35] LABS: ABSOLUTE NEUTROPHILS 13.5 thou/uL (1.4-8.2); BASOPHILS 0.9 % (0.0-2.0); HEMATOCRIT 28.7 % (37.0-47.0); HEMOGLOBIN 9.1 gm/dL (12.0-15.0); LYMPHOCYTES 6.9 % (24.0-44.0); MCH 24.4 pg (26.0-34.0); MCHC 31.7 g/dL (28.0-37.0); MCV 76.8 fL (80.0-100.0); MONOCYTES 9.8 % (1.0-8.0); PLATELET COUNT 296 thou/uL (150-400); POLYS 74.4 % (36.0-66.0); RBC 3.74 mil/uL (4.20-5.00); RDW 15.5 % (10.5-14.5); WBC 18.2 thou/uL (4.0-11.0)
[2018-03-29 04:47] LABS: CALCIUM 8.6 mg/dL (8.5-10.1); CREATININE 0.9 mg/dL (0.6-1.0); MAGNESIUM 1.7 mg/dL (1.8-2.4); POTASSIUM 3.6 mmol/L (3.5-5.1)
[2018-03-29 05:39] VITALS: BP 125/51
[2018-03-29 08:17] VITALS: BP 136/48
[2018-03-29 11:41] VITALS: BP 137/51
[2018-03-29 16:00] VITALS: BP 142/50
[2018-03-29 19:36] VITALS: BP 124/59
[2018-03-30 04:54] LABS: HEMATOCRIT 27.3 % (37.0-47.0); HEMOGLOBIN 8.6 gm/dL (12.0-15.0); MCH 24.3 pg (26.0-34.0); MCHC 31.6 g/dL (28.0-37.0); MCV 76.8 fL (80.0-100.0); PLATELET COUNT 307 thou/uL (150-400); RBC 3.55 mil/uL (4.20-5.00); RDW 15.6 % (10.5-14.5); WBC 18.4 thou/uL (4.0-11.0)
[2018-03-30 04:57] VITALS: BP 139/56
[2018-03-30 05:00] LABS: CALCIUM 9.1 mg/dL (8.5-10.1); CREATININE 0.9 mg/dL (0.6-1.0)
[2018-03-30 08:15] VITALS: BP 125/46
[2018-03-30 08:19] LABS: ABSOLUTE NEUTROPHILS 14.9 thou/uL (1.4-8.2)
[2018-03-30 08:20] LABS: ANISOCYTOSIS 2+
[2018-03-30 11:45] VITALS: BP 134/55
[2018-03-30 16:16] VITALS: BP 149/59
[2018-03-30 20:41] VITALS: BP 148/57
[2018-03-31 06:28] VITALS: BP 140/66
[2018-03-31 09:50] LABS: HEMATOCRIT 30.6 % (37.0-47.0); HEMOGLOBIN 9.7 gm/dL (12.0-15.0)
[2018-03-31 10:23] VITALS: BP 129/72
[2018-03-31 11:04] VITALS: BP 130/64
[2018-03-31 11:25] LABS: % SATURATION 8 % (20-39); IRON 21 ug/dL (50-170); TIBC 274 ug/dL (250-450)
[2018-03-31 15:34] VITALS: BP 143/51
[2018-03-31 19:25] VITALS: BP 146/62
[2018-03-31 20:04] VITALS: BP 146/62
[2018-04-01 04:53] VITALS: BP 140/66
[2018-04-01 07:02] VITALS: BP 170/56
[2018-04-01 11:16] VITALS: BP 150/55
[2018-04-01 11:54] LABS: HEMATOCRIT 27.6 % (37.0-47.0); HEMOGLOBIN 8.9 gm/dL (12.0-15.0); MCH 24.5 pg (26.0-34.0); MCHC 32.2 g/dL (28.0-37.0); MCV 76.1 fL (80.0-100.0); RBC 3.63 mil/uL (4.20-5.00); RDW 15.6 % (10.5-14.5); WBC 15.8 thou/uL (4.0-11.0)
[2018-04-01 12:23] LABS: ALBUMIN 2.9 g/dL (3.4-5.0); CALCIUM 9.4 mg/dL (8.5-10.1); CREATININE 0.9 mg/dL (0.6-1.0); POTASSIUM 3.8 mmol/L (3.5-5.1); TOTAL BILIRUBIN 0.2 mg/dL (<0.1-1.0); TOTAL PROTEIN 7.1 g/dL (6.4-8.2)
[2018-04-01 15:19] VITALS: BP 140/56
[2018-04-01 20:23] VITALS: BP 140/61
[2018-04-02 03:47] LABS: HEMATOCRIT 27.2 % (37.0-47.0); HEMOGLOBIN 8.5 gm/dL (12.0-15.0); MCHC 31.3 g/dL (28.0-37.0); MCV 76.9 fL (80.0-100.0); RBC 3.54 mil/uL (4.20-5.00); RDW 15.7 % (10.5-14.5); WBC 16.1 thou/uL (4.0-11.0)
[2018-04-02 03:53] LABS: CALCIUM 8.9 mg/dL (8.5-10.1); CREATININE 0.8 mg/dL (0.6-1.0); MAGNESIUM 1.8 mg/dL (1.8-2.4); POTASSIUM 3.8 mmol/L (3.5-5.1)
[2018-04-02 05:11] VITALS: BP 130/59
[2018-04-02 07:44] VITALS: BP 139/51
[2018-04-02 11:26] VITALS: BP 138/51
[2018-04-02 15:48] VITALS: BP 144/56
[2018-04-02 19:46] VITALS: BP 145/68
[2018-04-03 03:39] LABS: CALCIUM 9.3 mg/dL (8.5-10.1); CREATININE 0.7 mg/dL (0.6-1.0); MAGNESIUM 1.6 mg/dL (1.8-2.4); POTASSIUM 3.9 mmol/L (3.5-5.1)
[2018-04-03 03:48] LABS: HEMATOCRIT 28.6 % (37.0-47.0); MCHC 31.3 g/dL (28.0-37.0); MCV 76.7 fL (80.0-100.0); RBC 3.73 mil/uL (4.20-5.00); WBC 23.9 thou/uL (4.0-11.0)
[2018-04-03 04:43] VITALS: BP 167/52
[2018-04-03 07:55] VITALS: BP 147/59
[2018-04-03 11:45] VITALS: BP 121/69; BP 161/69
[2018-04-03 15:45] VITALS: BP 152/72
[2018-04-03 19:52] VITALS: BP 150/82
[2018-04-04 04:59] VITALS: BP 131/85
[2018-04-04 07:55] VITALS: BP 163/61
[2018-04-04 08:57] LABS: HEMATOCRIT 28.8 % (37.0-47.0); HEMOGLOBIN 9.3 gm/dL (12.0-15.0); MCH 24.5 pg (26.0-34.0); MCHC 32.1 g/dL (28.0-37.0); MCV 76.4 fL (80.0-100.0); RBC 3.78 mil/uL (4.20-5.00); RDW 16.3 % (10.5-14.5); WBC 20.7 thou/uL (4.0-11.0)
[2018-04-04 09:09] LABS: CALCIUM 9.6 mg/dL (8.5-10.1); CREATININE 0.7 mg/dL (0.6-1.0); MAGNESIUM 1.9 mg/dL (1.8-2.4); POTASSIUM 3.6 mmol/L (3.5-5.1)
[2018-04-04 11:40] VITALS: BP 171/50
[2018-04-04] MEDS ORDERED: ELIQUIS5 MG PO (13:09)
[2018-04-04] MEDS ORDERED: REGLAN 5 MG TAB5 MG PO (13:09)
[2018-04-04] MEDS ORDERED: FLAGYL500 MG PO (13:09)
[2018-04-04] MEDS ORDERED: TYLENOL325 MG PO (13:09)
[2018-04-04] MEDS ORDERED: PROTONIX40 M1 PO (13:09)
[2018-04-04] MEDS ORDERED: CEFDINIR300 MG PO (13:09)
[2018-04-04] MEDS ORDERED: ACIDOPHILUS1 EAC4 PO (13:09)
[2018-04-04] MEDS ORDERED: SORINE 80 MG TA80 M1 PO (13:09)
[2018-04-04] MEDS ORDERED: IRON325 PO (13:25)
[2018-04-04] MEDS ORDERED: VITAMIN D2000 UNIT PO (13:26)
[2018-04-04 13:51] VITALS: BP 136/56
[2018-04-04 14:10] VITALS: BP 136/56
== END 2018-04-04 15:05 | disposition home or self-care (01) | DRG 871 ==
LOC: ER 08:55 → EROBS 11:32 → 2N 11:32 → ENTRNSPT 04-04 14:49 → EDTRNSPTSTS 04-04 14:51 → 2N 04-04 15:05
PROVIDERS: Emergency Medicine; Internal Medicine; Internal Medicine Gastroenterology; Internal Medicine Geriatric Medicine; Nurse Practitioner
PROC: 0DBB8ZX Excision of Ileum, Via Natural or Artificial Opening Endoscopic, Diagnostic (ICD-10-PCS; principal; 2018-04-01)
DX: A41.9 Sepsis, unspecified organism (principal); K55.069 Acute infarction of intestine, part and extent unspecified; N39.0 Urinary tract infection, site not specified; R19.09 Other intra-abdominal and pelvic swelling, mass and lump; D73.5 Infarction of spleen; R59.9 Enlarged lymph nodes, unspecified; I10 Essential (primary) hypertension; E11.9 Type 2 diabetes mellitus without complications; I25.10 Atherosclerotic heart disease of native coronary artery without angina pectoris; E78.5 Hyperlipidemia, unspecified; E66.9 Obesity, unspecified; A59.01 Trichomonal vulvovaginitis; K57.30 Diverticulosis of large intestine without perforation or abscess without bleeding; K76.0 Fatty (change of) liver, not elsewhere classified; R91.1 Solitary pulmonary nodule; I48.91 Unspecified atrial fibrillation; K63.9 Disease of intestine, unspecified; J44.9 Chronic obstructive pulmonary disease, unspecified; I25.2 Old myocardial infarction; Z95.5 Presence of coronary angioplasty implant and graft; Z90.710 Acquired absence of both cervix and uterus; Z90.49 Acquired absence of other specified parts of digestive tract; Z95.1 Presence of aortocoronary bypass graft; Z88.0 Allergy status to penicillin; Z88.2 Allergy status to sulfonamides; Z88.8 Allergy status to other drugs, medicaments and biological substances; Z91.040 Latex allergy status; Z87.891 Personal history of nicotine dependence; Z68.32 Body mass index [BMI] 32.0-32.9, adult; Z79.01 Long term (current) use of anticoagulants
CPT/HCPCS: 10081; 62110; 62900; 70005

== ENCOUNTER → 2018-05-02 | Outpatient (CLI) | payer OTHER ==
[~2018-05-02] VITALS: Ht 152.4 cm; Wt 70.8 kg
[~2018-05-02] MED LIST changes: +ACIDOPHILUS1 EAC4 PO; +ATORVASTATIN CA40 MG PO; +CEFDINIR300 MG PO; +CINNAMON500 MG PO; +ELIQUIS5 MG PO; +FLAGYL500 MG PO; +IRON325 PO; +JANUVIA 50 MG T50 MG PO; +PROTONIX40 M1 PO; +REGLAN 5 MG TAB5 MG PO; +SORINE 80 MG TA80 M1 PO; +TYLENOL325 MG PO; +VITAMIN D2000 UNIT PO
[2018-05-02 10:31] VITALS: BP 153/62
[2018-05-02 10:33] LABS: HEMATOCRIT 35.5 % (37.0-47.0); HEMOGLOBIN 11.4 gm/dL (12.0-15.0); MCV 81.1 fL (80.0-100.0); RBC 4.37 mil/uL (4.20-5.00); RDW 19.4 % (10.5-14.5); WBC 11.1 thou/uL (4.0-11.0)
[2018-05-02 10:38] LABS: CALCIUM 9.8 mg/dL (8.5-10.1); CREATININE 0.9 mg/dL (0.6-1.0); POTASSIUM 4.1 mmol/L (3.5-5.1)
[2018-05-02 10:39] LABS: PROTIME 10.5 Seconds (9.3-11.4)
== END | disposition home or self-care (01) ==
LOC: SPEC 09:40
PROVIDERS: Radiology Vascular & Interventional Radiology
DX: Z45.2 Encounter for adjustment and management of vascular access device (principal); Z53.8 Procedure and treatment not carried out for other reasons; C18.9 Malignant neoplasm of colon, unspecified; I10 Essential (primary) hypertension; E11.9 Type 2 diabetes mellitus without complications; E78.5 Hyperlipidemia, unspecified; I48.91 Unspecified atrial fibrillation; J44.9 Chronic obstructive pulmonary disease, unspecified; I25.2 Old myocardial infarction; M10.9 Gout, unspecified; Z90.49 Acquired absence of other specified parts of digestive tract; Z90.710 Acquired absence of both cervix and uterus; Z98.890 Other specified postprocedural states; Z95.5 Presence of coronary angioplasty implant and graft; Z95.1 Presence of aortocoronary bypass graft; E66.09 Other obesity due to excess calories

== ENCOUNTER → 2018-05-05 | Outpatient (CLI) | payer OTHER ==
[~2018-05-05] VITALS: Ht 152.4 cm; Wt 70.8 kg
[~2018-05-05] MED LIST changes: +ASPIR 8181 MG PO; +METFORMIN HCL500 MG PO; +SOTALOL 120 MG120 MG PO
[2018-05-05 08:35] VITALS: BP 133/55
== END | disposition home or self-care (01) ==
LOC: SPEC 07:55
DX: Z45.2 Encounter for adjustment and management of vascular access device (principal); C18.9 Malignant neoplasm of colon, unspecified; I10 Essential (primary) hypertension; I25.10 Atherosclerotic heart disease of native coronary artery without angina pectoris; I25.2 Old myocardial infarction; E11.9 Type 2 diabetes mellitus without complications; J44.9 Chronic obstructive pulmonary disease, unspecified; E78.5 Hyperlipidemia, unspecified; I48.91 Unspecified atrial fibrillation; M10.9 Gout, unspecified; E66.09 Other obesity due to excess calories; Z90.710 Acquired absence of both cervix and uterus; Z79.899 Other long term (current) drug therapy; Z98.890 Other specified postprocedural states; Z90.49 Acquired absence of other specified parts of digestive tract; Z79.4 Long term (current) use of insulin; Z87.891 Personal history of nicotine dependence; Z88.0 Allergy status to penicillin; Z88.2 Allergy status to sulfonamides; Z91.040 Latex allergy status

== ENCOUNTER 2018-05-25 22:25 | Inpatient (IN) | payer OTHER ==
[~2018-05-25] VITALS: Ht 152.4 cm; Wt 68.3 kg
--- NOTE | ~2018-05-25 | EKG ---
[address] [address] ELECTROCARDIOGRAM REPORT Name: JACEY LOZANOEZ Morales Room #: 216-P ADM IN M.R.#: [id number] Admission: 05/25/18 Attend Phys: Joshua Cummins MD Discharge: Date of : 50 Report #: [id number] THIS REPORT FOR: //name// [facility] ED Test Date: 2018-05-25 Test Time: 23:46:58 Pat Name: MARY LOZANO Department: Room: 216 Gender: F Lamp Replacer: ROMANA : 1950 Requested By: Juve Burton Order Number: [id number] MD: Dario Rocha Measurements Intervals [place] Rate: 108 P: [place]: QRS: -118 QRSD: 135 T: 2 QT: 377 QTc: 506 Interpretive Statements Atrial fibrillation RBBB Compared to ECG 03/30/2018 09:50:35 inferior repolarization abnormality less prominent Electronically Signed On 05-26-2018 8:47:14 CDT by Dario Rocha [email or web address] <ELECTRONICALLY SIGNED> By: Dario Rocha MD, [facility] 05/26/18 0847 45 45 Dario Rocha MD, [facility] /EPI
--- NOTE | ~2018-05-25 | EKG ---
[address] [place] [address] ELECTROCARDIOGRAM REPORT Name: MARTAMARY Morales Room #: 216-P ADM IN M.R.#: [id number] Admission: 05/25/18 Attend Phys: Joshua Cummins MD Discharge: Date of : 50 Report #: [id number] THIS REPORT FOR: //name// [facility] [place] Test Date: 2018-05-26 Test Time: 16:51:56 Pat Name: MARY LOZANO Department: Room: 216 Gender: F Business Support Assistant: Lavinia SABA : 1950 Requested By: Bossman Nicole Order Number: [id number] MD: Dario Rocha Measurements Intervals [place] Rate: 60 P: 0 MS: 105 QRS: -51 QRSD: 132 T: -66 QT: 608 QTc: 608 Interpretive Statements Sinus rhythm Short MS interval Right bundle branch block T-wave abnormality, consider inferolateral ischemia Prolonged QT interval Compared to ECG 05/25/2018 23:46:58 QT interval was lengthened T-wave abnormality now present Atrial fibrillation no longer present Electronically Signed On 05-27-2018 8:27:38 CDT by Dario Rocha [email or web address] <ELECTRONICALLY SIGNED> By: Dario Rocha MD, [facility] 05/27/18 0827 1651 165 Dario Rocha MD, [facility] /EPI
--- NOTE | ~2018-05-25 | EKG ---
[place] [address] [facility] [place] [address] ELECTROCARDIOGRAM REPORT Name: JACEY LOZANOEZ Morales Room #: 216-P ADM IN M.R.#: [id number] Admission: 05/25/18 Attend Phys: Joshua Cummins MD Discharge: Date of : 50 Report #: [id number] THIS REPORT FOR: //name// [facility] Test Date: 2018-05-28 Test Time: 06:15:03 Pat Name: MARY LOZANO Department: Room: 216 Gender: F Consumer Advocate: FELY : 1950 Requested By: Bossman Nicole Order Number: [id number] MD: Dario Rocha Measurements Intervals [place] Rate: 58 P: -72 DC: 109 QRS: -46 QRSD: 136 T: -61 QT: 595 QTc: 585 Interpretive Statements Sinus or ectopic atrial rhythm Short DC interval RBBB T abnormalities, inferior and lateral leads consider ischemia Prolonged QT interval Compared to ECG 05/27/2018 06:47:09 no significant change was found Electronically Signed On 05-28-2018 8:26:18 CDT by Dario Rocha [email or web address] <ELECTRONICALLY SIGNED> By: Dario Rocha MD, [facility] 05/28/18 0826 4 4 Dario Rocha MD, [facility] /EPI
--- NOTE | ~2018-05-25 | EKG ---
[address] [email or web address] [address] ELECTROCARDIOGRAM REPORT Name: JACEY LOZANOEZ Morales Room #: 216-P ADM IN M.R.#: [id number] Admission: 05/25/18 Attend Phys: Joshua Cummins MD Discharge: Date of : 50 Report #: [id number] THIS REPORT FOR: //name// [facility] ED Test Date: 2018-05-25 Test Time: 23:24:56 Pat Name: MARY LOZANO Department: Room: 216 Gender: F Supervisor Loading: germania : 1950 Requested By: Juve Burton Order Number: [id number] MD: Dario Rocha Measurements Intervals [place] Rate: 102 P: MS: QRS: 64 QRSD: 132 T: 32 QT: 391 QTc: 510 Interpretive Statements Atrial fibrillation Right bundle branch block Minimal ST elevation, inferior leads Compared to ECG 03/30/2018 09:50:35 heart rate has slowed results called to emergency department Electronically Signed On 05-26-2018 8:44:35 CDT by Dario Rocha [email or web address] <ELECTRONICALLY SIGNED> By: Dario Rocha MD, [facility] 05/26/18 0844 2324 2324 Dario Rocha MD, [facility] /EPI
--- NOTE | ~2018-05-25 | EKG ---
[address] [employer] [place] [address] ELECTROCARDIOGRAM REPORT Name: MARTAMARY Room #: 216-P ADM IN M.R.#: [id number] Admission: 05/25/18 Attend Phys: Joshua Cummins MD Discharge: Date of : 50 Report #: [id number] THIS REPORT FOR: //name// [facility] Test Date: 2018-05-27 Test Time: 16:56:50 Pat Name: MARY LOZANO Department: Room: 216 P Gender: F Executive Chef: Lavinia SABA : 1950 Requested By: Bossman Nicole Order Number: [id number] MD: Dario Rocha Measurements Intervals [place] Rate: 59 P: -17 CA: 112 QRS: -44 QRSD: 132 T: -67 QT: 641 QTc: 636 Interpretive Statements Sinus rhythm Borderline short CA interval Right bundle branch block Prolonged QT interval T-wave abnormality, consider inferolateral ischemia Compared to ECG 05/27/2018 06:47:09 No significant change was found Electronically Signed On 05-28-2018 8:00:38 CDT by Dario Rocha [email or web address] <ELECTRONICALLY SIGNED> By: Dario Rocha MD, [facility] 05/28/18 0800 1656 1656 Dario Rocha MD, [facility] /EPI
--- NOTE | ~2018-05-25 | EKG ---
[address] [address] ELECTROCARDIOGRAM REPORT Name: MARTAMARY Moralse Room #: 216-P ADM IN M.R.#: [id number] Admission: 05/25/18 Attend Phys: Joshua Cummins MD Discharge: Date of : 50 Report #: [id number] THIS REPORT FOR: //name// [facility] ED Test Date: 2018-05-25 Test Time: 22:26:34 Pat Name: MARY LOZANO Department: Room: 216 Gender: F Mobile Plant Operators: ROMANA : 1950 Requested By: Juve Burton Order Number: [id number] MD: Dario Rocha Measurements Intervals [place] Rate: 131 P: [place]: QRS: -153 QRSD: 119 T: 42 QT: 335 QTc: 495 Interpretive Statements Atrial fibrillation RBBB ST elevation, consider inferior injury Compared to ECG 03/30/2018 09:50:35 ST (T wave) deviation now present Myocardial infarct finding now present Sinus rhythm no longer present report called to emergency department Electronically Signed On 05-26-2018 8:40:29 CDT by Dario Rocha [email or web address] <ELECTRONICALLY SIGNED> By: Dario Rocha MD, [facility] 05/26/18 0840 2226 2226 Dario Rocha MD, [facility] /EPI
--- NOTE | ~2018-05-25 | HC ---
[facility] [place] [address] CONSULTATION Name: MARTAMARY Room #: 216-P [facility] IN ..#: [id number] Admission: 05/25/18 Attend Phys: Joshua Cummins MD Discharge: 05/28/18 Date of : 50 Report #: [id number] THIS REPORT FOR: //name// CC: Bossman Vidales DO Joshua Cummins DATE OF SERVICE: 05/26/2018 PRIMARY CARE PHYSICIAN: Dr. Tuan Delgado HISTORY OF PRESENT ILLNESS: The patient is a 68-year-old single white female who I was asked to see in the hospital today after she complained of chest pain. The patient had triple vessel bypass surgery at [facility] in 2009. She had a stent placed in 2014. In 2015, she had two additional stents placed. At that time, the vein graft to the diagonal appeared to be chronically occluded. She took Effient for a year. I last saw her in December. She presented last month with atrial fibrillation. She was placed on Eliquis and sotalol. During that hospitalization, she was found to have an abdominal mass. She is found to have recurrent colon cancer. A Port-A-Cath was placed and she was started on chemotherapy. She just received IV chemotherapy 5 days ago. She has not felt very well since that time. When she was started on Eliquis, she was told to stop her aspirin. Last night, she had an episode of chest tightness ____. She became short of breath. She drove to the Emergency Room. She was found to be in AFib. She was admitted for further evaluation and treatment. Today, she had recurrent chest tightness. She was noted to have an elevated troponin. I was asked to see her for further evaluation and treatment. She denied the chest discomfort being related to food. She does get short of breath with exertion, but denied any palpitations, bleeding or leg pain. PAST MEDICAL HISTORY: Otherwise significant for cholecystectomy, carpal tunnel surgery, hysterectomy, colon resection when her colon cancer was first diagnosed in 2007. She has a history of hypertension, diabetes and hyperlipidemia. CURRENT MEDICATIONS: Consists of lisinopril, sotalol, omeprazole, Januvia, Lipitor and Eliquis. ALLERGIES: SHE HAS INTOLERANCE TO MULTIPLE MEDICATIONS INCLUDING PLAVIX, PENICILLIN, BRILINTA, AMLODIPINE AND SULFA DRUGS. FAMILY HISTORY: Negative for heart disease. SOCIAL HISTORY: She is single, lives in [place]. 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 Quit smoking years ago. No alcohol abuse. [facility] [address] [place] [address] CONSULTATION Name: MARY LOZANO Room #: 216-P [facility] IN M.R.#: [id number] Admission: 05/25/18 Attend Phys: Joshua Cummins MD Discharge: 05/28/18 Date of : 50 Report #: [id number] REVIEW OF SYSTEMS: She has had no history of stroke, asthma, peptic ulcer disease, liver disease, kidney disease or chronic skin condition. PHYSICAL EXAMINATION: GENERAL: Revealed a middle-aged female. No acute distress. VITAL SIGNS: Blood pressure 120/70 and pulse 60. HEENT: She was anicteric, conjunctiva pink. Mucous membranes moist. NECK: Veins do not appear distended. CHEST: Clear to auscultation. No carotid bruits. CARDIAC: Regular rate and rhythm. ABDOMEN: Soft. EXTREMITIES: Had no edema. Dorsalis pedis pulse 1+ bilaterally. SKIN: Warm and dry. RADIOLOGICAL DATA: ECG showed a sinus rhythm with T-wave inversion in 2, 3 and aVF. Her workup so far, she had portable chest x-ray that showed normal heart size and clear lung garner. LABORATORY DATA: Sodium 139, BUN 15 and creatinine 0.9. Liver function studies were normal. Troponin is 2.94. Her white blood cell count 2.4, hemoglobin 11.5 and platelet count 292,000. IMPRESSION AND RECOMMENDATIONS: 1. Non-ST elevation myocardial infarction. Recommend repeat cardiac catheterization. I would recommend loading the patient with Effient. 2. Atrial fibrillation. I recommend increasing the dose of sotalol. I would recommend holding the Eliquis at this time in anticipation of heart catheterization. 3. Recurrent colon cancer. The patient is receiving chemotherapy. 4. Neutropenia following chemotherapy. 5. Diabetes. 6. Hypertension. The patient is on a beta jordan and MELVIN inhibitor. 7. Hyperlipidemia. The patient is on a statin drug. <ELECTRONICALLY SIGNED> By: Bossman Nicole MD, [facility]ACC 05/29/18 1739 1753 0236 Bossman Nicole MD, FACC /nt
--- NOTE | ~2018-05-25 | EKG ---
[place] [address] [facility] [place] [address] ELECTROCARDIOGRAM REPORT Name: JACEY LOZANOEZ Morales Room #: 216-P ADM IN M.R.#: [id number] Admission: 05/25/18 Attend Phys: Joshua Cummins MD Discharge: Date of : 50 Report #: [id number] THIS REPORT FOR: //name// [facility] Test Date: 2018-05-27 Test Time: 06:47:09 Pat Name: MARY LOZANO Department: Room: 216 Gender: F Computer Technical Specialist: FELY : 1950 Requested By: Bossman Nicole Order Number: [id number] MD: Dario Rocha Measurements Intervals [place] Rate: 57 P: -25 AR: 107 QRS: -63 QRSD: 134 T: -67 QT: 605 QTc: 590 Interpretive Statements Sinus rhythm Short [place] interval Right bundle branch block T-wave abnormality, consider inferior ischemia Prolonged QT interval Compared to ECG 05/25/2018 23:46:58 No significant change was found Electronically Signed On 05-27-2018 9:05:03 CDT by Dario Rocha [email or web address] <ELECTRONICALLY SIGNED> By: Dario Rocha MD, [facility] 05/27/18 0905 0647 0647 Dario Rocha MD, [facility] /EPI
--- NOTE | ~2018-05-25 | CATHLAB ---
[facility] [address] [place] [address] INVASIVE PROCEDURE REPORT Name: MARY LOZANO Andrew Room #: 216-P [facility] IN [facility]#: [id number] Admission: 05/25/18 Attend Phys: Joshua Cummins MD Discharge: 05/28/18 Date of : 50 Date of Service: 05/28/18 1814 Report #: [id number] THIS REPORT FOR: //name// APPROVED REPORT Study performed: 05/27/2018 12:27:02 Patient Details Patient Status: In-Patient Room #: The patient is a 68 year-old female Event Personnel Bossman Nicole Lead Athlete, Paco Rudolph RN RN, Rosalina Zhou Sandifer, David Monitor, Dillon Lomeli RN, Derek, Luzma RN gun examiner Performed Art Access - R femoral artery* 27516 Initial Mod Sed Same Phys/QHP Gr5y 166324 63330 Mod Sed Same Phys/QHP Ea 784680 Left Heart Cath Coronaries, Bypass Grafts [id number] LHCCORCABG SERAFIN Place w/wo Plasty Single RCA 111454 Hemostasis w/ Angioseal Indication Non-STEMI , Chest pain Risk Factors Arterial Hypertension, Chronic Lung DiseaseHypercholesterolemia, Tobacco History () Previous Procedures/Diagnoses Previous CABGPrevious PCI Admission/Lab Medications/Medications given during procedure Heparin Unfract. Procedure Narrative The patient was brought electively to the Cardiac Catheterization Laboratory and was prepped and draped in a sterile manner. The Right Groin^ was infiltrated with 1% Lidocaine subcutaneous anesthesia. A 6 fr sheath sheath was inserted into the RFA^. Coronary angiography was performed using coronary diagnostic catheters. The right coronary system was accessed and visualized with a JR 4 catheter. The left coronary system was accessed and visualized with a JL 4 catheter. The left ventricle was accessed and visualized with a Pigtail catheter. Left ventricular/Aortic Valve gradient assessed via catheter [facility] [address] [email or web address] [address] INVASIVE PROCEDURE REPORT Name: MARY LOZANO Room #: 216-P [facility] IN [facility].#: [id number] Admission: 05/25/18 Attend Phys: Joshua Cummins MD Discharge: 05/28/18 Date of : 50 Date of Service: 05/28/18 1814 Report #: [id number] pullback. Left ventriculogram was performed in JEONG projection. Pre-demployment femoral angiogram was performed . Closure device was deployed with a 6 Fr Angioseal. The patient tolerated the procedure well and there were no complications associated with the procedure. There was no hematoma. GAMING catheter was used to engage the GAMING bypass graft. JR4 catheter used to engage ostium of SVG to the PDA branch. SVG to the diagonal artery had previously been demonstrated to be chronically occluded Intraoperative Conscious Sedation Sedation start time: 14:58 Case end Time: 15:51 Fentanyl 99354 mcg Versed 2 mg Fluoro Time: 5.58 minutes Dose: DAP 4415.50 cGycm2 512 mGy Contrast Type and Amount: Omnipaque 145 ml Coronary Angiography The patient's coronary anatomy is right dominant. [place] Artery Percent Stenosis Grafts (Complete if Previous CABG=Yes: Percent Stenosis) Patent GAMING graft noted to the LAD, although the apical LAD was small and had a narrow lumen. Patent SVG to the posterior descending branch of the RCA. The SVG to the diagonal artery had previously been noted to be occluded. Diagnostic Cath Left Main 0% stenosis LAD ostial stent 100% stenosis Circumflex 30% mid stenosis OM3 50% mid stenosis Right Coronary long stent noted that started proximally and extended beyond the acute margin. 90% stenosis noted in the distal portion of the stent with a filling defect suggestive of a thrombus R PDA 90% proximal stenosis Left Ventriculography The left ventricular ejection fraction is estimated to be 40-45%. Left ventricular wall motion abnormalities are present. There is no mitral insufficiency. severe hypokinesis noted of the inferior wall Hemodynamics The aortic pressure is 159/67 mmHg with a mean of 102 mmHg. The left [facility] [address] [place] [address] INVASIVE PROCEDURE REPORT Name: MARY LOZANO Room #: 216-P [facility]#: [id number] Admission: 05/25/18 Attend Phys: Joshua Cummins MD Discharge: 05/28/18 Date of : 50 Date of Service: 05/28/18 1814 Report #: [id number] ventricular pressure is 169/23 mmHg with a mean of mmHg. The left ventricular end diastolic pressure is 25 mmHg. There was no gradient across the aortic valve upon pullback. Pullback from the left ventricle to the aorta revealed no gradient across the aortic valve. PCI Technique Lesion Anticoagulation was achieved with Heparin. Patient was preloaded with Effient. Percutaneous coronary intervention was performed on the mistal right coronary artery. The lesion stenosis prior to intervention was 90% with LEONOR 3 flow. A VISTA 6FR JCR4 #[id number] Guide Catheter was used to engage the rca ostium. A BMW Wire .014 X 190CM #[id number] Interventional Guidewire was used to cross the lesion. BALLOON DILATION A Balloon catheter Euphora RX 2.0 x 10 #[id number] was inserted and inflated up to 14.00atm for 25seconds. Repeat angiography revealed the following post-dilatation results: 50% stenosis. STENT DEPLOYMENT A drug-eluting stent XIENCE ALPINE RX 2.5 X 15 #[id number] was inserted and inflated up to 12.00atm for 20seconds. Repeat angiography revealed the following post-stent deployment results: 0% stenosis. Final angiography reveals 0 % stenosis with LEONOR 3 flow. Conclusion 1. 90% restenosis noted of the distal portion of a stent in the rca 2. patent GAMING graft to the lad 3. patent SVG to the posterior descending branch of the rca 4. successful placement of a drug eluting stent in the rca Recommendations Smoking Cessation Cardiac Rehabilitation Referral Aggressive Medical Therapy [facility] [address] [place] [address] INVASIVE PROCEDURE REPORT Name: MARY LOZANO Room #: 216-P [facility] IN M.R.#: [id number] Admission: 05/25/18 Attend Phys: Joshua Cummins MD Discharge: 05/28/18 Date of : 50 Date of Service: 05/28/181813 Report #: [id number] Medications Administered Prasugrel <ELECTRONICALLY SIGNED> By: Bossman Nicole MD, FACC 05/28/181813 13 13 Bossman Nicole MD, FACC /INF
[2018-05-25 22:25] VITALS: BP 164/92
[~2018-05-25 22:25] MED LIST changes: -ASPIR 8181 MG PO; -METFORMIN HCL500 MG PO; -SOTALOL 120 MG120 MG PO
[2018-05-25 23:03] LABS: HEMATOCRIT 34.8 % (37.0-47.0); HEMOGLOBIN 11.5 gm/dL (12.0-15.0); MCH 25.4 pg (26.0-34.0); MCHC 32.9 g/dL (28.0-37.0); MCV 77.3 fL (80.0-100.0); PLATELET COUNT 292 thou/uL (150-400); RBC 4.51 mil/uL (4.20-5.00); RDW 18.1 % (10.5-14.5); WBC 2.4 thou/uL (4.0-11.0)
[2018-05-25 23:11] LABS: ANION GAP 5 mmol/L (7-16); BUN 15 mg/dL (7-18); CALCIUM 9.4 mg/dL (8.5-10.1); CHLORIDE 102 mmol/L (98-107); CO2 28 mmol/L (21-32); CREATININE 0.9 mg/dL (0.6-1.0); GLUCOSE 194 mg/dL (74-106); POTASSIUM 4.2 mmol/L (3.5-5.1); SODIUM 135 mmol/L (136-145)
[2018-05-25 23:17] LABS: APTT 26.8 Seconds (24.5-32.8); INR 1.1; PROTIME 10.8 Seconds (9.3-11.4)
[2018-05-25 23:22] LABS: ALBUMIN 3.3 g/dL (3.4-5.0); MAGNESIUM 1.9 mg/dL (1.8-2.4); SGOT 12 U/L (15-37); SGPT 23 U/L (30-65); TOTAL BILIRUBIN 0.5 mg/dL (<0.1-1.0); TOTAL PROTEIN 7.4 g/dL (6.4-8.2); TROPONIN-I <0.06 ng/mL (<0.06)
[2018-05-26] VITALS (9 sets, daily range): BP systolic 109–170; BP diastolic 57–98
[2018-05-26 00:11] LABS: ABSOLUTE NEUTROPHILS 0.8 thou/uL (1.4-8.2); ANISOCYTOSIS 2+
[2018-05-26] MEDS ORDERED: METFORMIN HCL500 MG PO (01:52)
[2018-05-27] VITALS (13 sets, daily range): BP systolic 114–162; BP diastolic 58–80
[2018-05-27 00:57] LABS: CHOLESTEROL 75 mg/dL (<200); HDL CHOLESTEROL 35 mg/dL (>40); LDL CHOLESTEROL 29 mg/dL (<100); TC:HDL 2.1 Ratio (Not establshd); TRIGLYCERIDE 59 mg/dL (<150); VLDL 12 mg/dL (<40)
[2018-05-27 01:17] LABS: SERUM ASSESSMENT Clear
[2018-05-27 01:19] LABS: TROPONIN-I 6.62 ng/mL (<0.06)
[2018-05-27 01:22] LABS: HEMATOCRIT 31.1 % (37.0-47.0); HEMOGLOBIN 10.2 gm/dL (12.0-15.0); MCH 25.6 pg (26.0-34.0); MCHC 32.7 g/dL (28.0-37.0); MCV 78.3 fL (80.0-100.0); RBC 3.98 mil/uL (4.20-5.00); RDW 18.2 % (10.5-14.5); WBC 3.8 thou/uL (4.0-11.0)
[2018-05-28] VITALS (7 sets, daily range): BP systolic 116–122; BP diastolic 42–81
[2018-05-28 06:12] LABS: HEMATOCRIT 23.4 % (37.0-47.0); MCH 25.8 pg (26.0-34.0); MCHC 33.1 g/dL (28.0-37.0); MCV 78.1 fL (80.0-100.0); RBC 2.99 mil/uL (4.20-5.00); RDW 17.8 % (10.5-14.5); WBC 4.2 thou/uL (4.0-11.0)
[2018-05-28 06:19] LABS: HEMOGLOBIN 7.7 gm/dL (12.0-15.0)
[2018-05-28 06:24] LABS: CREATININE 0.8 mg/dL (0.6-1.0)
[2018-05-28 06:26] LABS: TROPONIN-I 4.23 ng/mL (<0.06)
[2018-05-28] MEDS ORDERED: SOTALOL 120 MG120 MG PO (10:32)
[2018-05-28] MEDS ORDERED: EFFIENT10 MG PO (10:32)
[2018-05-28] MEDS ORDERED: ASPIR 8181 MG PO (10:37)
[2018-05-28 15:05] LABS: HEMATOCRIT 23.1 % (37.0-47.0); HEMOGLOBIN 7.6 gm/dL (12.0-15.0)
== END 2018-05-28 15:25 | disposition home or self-care (01) | DRG 246 ==
LOC: ER 22:25 → 2N 23:55 → EROBS 23:55 → 2N 05-26 01:43 → ENTRNSPT 05-28 15:06 → EDTRNSPTSTS 05-28 15:07 → 2N 05-28 15:25
PROVIDERS: Emergency Medicine; Internal Medicine Cardiovascular Disease; Nurse Practitioner Acute Care
PROC: B2151ZZ Fluoroscopy of Left Heart using Low Osmolar Contrast (ICD-10-PCS; principal; 2018-05-28)
PROC: B2121ZZ Fluoroscopy of Single Coronary Artery Bypass Graft using Low Osmolar Contrast (ICD-10-PCS; principal; 2018-05-28)
PROC: B2181ZZ Fluoroscopy of Left Internal Mammary Bypass Graft using Low Osmolar Contrast (ICD-10-PCS; principal; 2018-05-28)
PROC: B2111ZZ Fluoroscopy of Multiple Coronary Arteries using Low Osmolar Contrast (ICD-10-PCS; principal; 2018-05-28)
PROC: 027034Z Dilation of Coronary Artery, One Artery with Drug-eluting Intraluminal Device, Percutaneous Approach (ICD-10-PCS; principal; 2018-05-28)
PROC: 4A023N7 Measurement of Cardiac Sampling and Pressure, Left Heart, Percutaneous Approach (ICD-10-PCS; principal; 2018-05-28)
DX: T82.855A Stenosis of coronary artery stent, initial encounter (principal); I21.4 Non-ST elevation (NSTEMI) myocardial infarction; I25.110 Atherosclerotic heart disease of native coronary artery with unstable angina pectoris; I10 Essential (primary) hypertension; E78.5 Hyperlipidemia, unspecified; I48.91 Unspecified atrial fibrillation; J44.9 Chronic obstructive pulmonary disease, unspecified; K57.90 Diverticulosis of intestine, part unspecified, without perforation or abscess without bleeding; M10.9 Gout, unspecified; D64.9 Anemia, unspecified; E11.9 Type 2 diabetes mellitus without complications; D70.1 Agranulocytosis secondary to cancer chemotherapy; T45.1X5A Adverse effect of antineoplastic and immunosuppressive drugs, initial encounter; Y83.8 Other surgical procedures as the cause of abnormal reaction of the patient, or of later complication, without mention of misadventure at the time of the procedure; Y92.89 Other specified places as the place of occurrence of the external cause; I25.2 Old myocardial infarction; Z95.1 Presence of aortocoronary bypass graft; Z95.5 Presence of coronary angioplasty implant and graft; Z87.891 Personal history of nicotine dependence; Z90.49 Acquired absence of other specified parts of digestive tract; Z90.710 Acquired absence of both cervix and uterus; Z85.038 Personal history of other malignant neoplasm of large intestine; Z92.21 Personal history of antineoplastic chemotherapy; Z79.01 Long term (current) use of anticoagulants; Z79.899 Other long term (current) drug therapy; Z91.040 Latex allergy status; Z88.0 Allergy status to penicillin; Z88.2 Allergy status to sulfonamides; Z88.8 Allergy status to other drugs, medicaments and biological substances; Z91.048 Other nonmedicinal substance allergy status
CPT/HCPCS: 10081

== ENCOUNTER 2018-07-17 01:30 | Inpatient (IN) | payer OTHER ==
[2018-07-17] VITALS (7 sets, daily range): BP systolic 119–194; BP diastolic 41–76
[~2018-07-17] VITALS: Ht 152.4 cm; Wt 67.1 kg
--- NOTE | ~2018-07-17 | 2DMMODE ---
[facility] [address] [place] [address] 2 D/M-MODE ECHOCARDIOGRAM Name: MARTAMARY Room #: 349-I [facility] IN [facility]#: [id number] Admission: 07/17/18 Attend Phys: Erik Tapia MD Discharge: Date of : 50 Date of Service: 07/17/18 0909 Report #: [id number] THIS REPORT FOR: //name// APPROVED REPORT Study performed: 07/17/2018 08:02:37 EXAM: Comprehensive 2D, Doppler, and color-flow Echocardiogram Patient Location: Bedside Room #: 349 Status: routine BSA: 1.64 HR: 85 bpm BP: 135/51 mmHg Other Information Study Quality: Adequate Technically limited study due to patient unable to tolerate pressure from transducer. Indications COPD Diabetes CAD SOA, Hx MD in 2005 and 2006, CABG x3 2D Dimensions RVDd: 29.58 mm IVSd: 8.71 (7-11mm) LVOT Diam: 19.74 (18-24mm) LVDd: 51.44 mm PWd: 9.04 (7-11mm) Ascending Ao: 27.07 (22-36mm) LVDs: 35.83 (25-40mm) Aortic Root: 26.92 mm IVC: 20.00 mm Volumes Left Atrial Volume (Systole) Single Plane 4CH: 64.67 mL Single Plane 2CH: 49.10 mL LA ESV Index: 37.00 mL/m2 Aortic Valve AoV Peak Rajendra.: 1.66 m/s AO Peak Gr.: 10.99 mmHg LVOT Max P.73 mmHg LVOT Max V: 0.97 m/s LIYA Vmax: 1.78 cm2 [facility] [place] [address] [address] 2 D/M-MODE ECHOCARDIOGRAM Name: MARY LOZAON Andrew Room #: [address] [place] [address] [facility]#: [id number] Admission: 07/17/18 Attend Phys: Erik Tapia MD Discharge: Date of : 50 Date of Service: 07/17/18 0909 Report #: [id number] Mitral Valve MV Decel. Time: 202.48 ms MV E Max Rajendra.: 1.22 m/s IVRT: 78.43 ms Pulmonary Valve PV Peak Rajendra.: 1.08 m/s PV Peak Gr.: 4.71 mmHg Pulmonary Vein P Vein S: 0.53 m/s P Vein D: 1.04 m/s P Vein S/D Ratio: 0.51 Tricuspid Valve TR Peak Rajendra.: 3.26 m/s RAP Estimate: 5.00 mmHg TR Peak Gr.: 42.81 mmHg PA Pressure: 47.00 mmHg Left Ventricle The left ventricle is normal size. There is normal left ventricular wall thickness. The left ventricular systolic function is normal. The left ventricular ejection fraction is within the normal range. LVEF is 55-60%. Right Ventricle The right ventricle is normal size. The right ventricular systolic function is normal. Atria Left atrium is mildly dilated. Right atrium is at the upper limits of normal. Aortic Valve Aortic valve is mildly calcified. No aortic regurgitation is present. There is no aortic valvular stenosis. Mitral Valve Mild mitral annular calcification. Trace to mild mitral regurgitation. No evidence of mitral valve stenosis. Tricuspid Valve The tricuspid valve is normal in structure. Mild tricuspid regurgitation. PAP is estimated at 47 mmHg. Pulmonic Valve The pulmonary valve is normal in structure. Trace to mild pulmonic [facility] [address] [place] [address] 2 D/M-MODE ECHOCARDIOGRAM Name: MARTAMARY Morales Room #: 349-I [facility] IN [facility].#: [id number] Admission: 07/17/18 Attend Phys: Erik Tapia MD Discharge: Date of : 50 Date of Service: 07/17/18 0909 Report #: [id number] regurgitation. Great Vessels The aortic root is normal in size. IVC is normal in size and collapses >50% with inspiration. Pericardium There is no pericardial effusion. <Conclusion> The left ventricle is normal size. There is normal left ventricular wall thickness. The left ventricular systolic function is normal. The right ventricle is normal size. Left atrium is mildly dilated. Aortic valve is mildly calcified. There is no aortic valvular stenosis. Trace to mild mitral regurgitation. Mild tricuspid regurgitation. PAP is estimated at 47 mmHg. <ELECTRONICALLY SIGNED> By: Dakota Meyer MD 07/17/18908 8 8 Dakota Meyer MD /INF
--- NOTE | ~2018-07-17 | HC ---
[facility] [place] [address] [address] [place] [address] CONSULTATION Name: JACEY LOZANOEZ Morales Room #: 349-I ADM IN M.R.#: [id number] Admission: 07/17/18 Attend Phys: Tuan Guerrero DO Discharge: Date of : 50 Report #: [id number] THIS REPORT FOR: //name// CC: Erik Vidales DO DATE OF SERVICE: 07/17/2018 CARDIOLOGY CONSULTATION HISTORY OF PRESENT ILLNESS: The patient is a 68-year-old single white female who I was asked to see in the hospital today after she was noted to be in atrial fibrillation. The patient had triple-vessel coronary artery bypass surgery at [facility] in 2009. She had a coronary stent placed in 2014, and an additional coronary stent was placed in 2015. She presented in March 2018 with atrial fibrillation. She was started on Eliquis and sotalol. During that hospitalization, she was found to have an abdominal mass and was found to have recurrent colon cancer. A Port-A-Cath was placed and she was started on chemotherapy in April. She was then admitted to [facility] at the end of April with unstable angina. She was found to be back in atrial fibrillation. She had an elevated troponin. I saw her in consultation. She was felt to have a non-STEMI. I performed a repeat heart catheterization on 05/27/2018. The LAD was occluded. The circumflex had only a 50% stenosis. The right coronary had a long stent with 90% stenosis at the distal edge of the stent. Ejection fraction was 45%. There was a GAMING graft to the LAD although the apical LAD was very small and narrow lumen. There is a patent vein graft to the posterior descending branch of the right coronary artery. The vein graft to the diagonal is occluded. I then placed a new drug-eluting stent in the right coronary artery. She tolerated this well. She was converted to sinus rhythm. She was taken off of Eliquis and placed on Effient and aspirin. She had a previous allergy to PLAVIX. Because of the recurrent AFib, I increased her sotalol to 120 mg twice a day. 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 Unfortunately, she developed a GI bleed. She was taken off of aspirin and Effient for a week. The bleeding stopped. She did not undergo endoscopy because of the recent stent. She stays fairly active. She did not require transfusions. She denied any recent chest pain or palpitations. Recently, she has been short of breath. I actually just saw her in the cardiology clinic yesterday when she was in sinus bradycardia. Because of the recent bleed, I recommended she discontinue the aspirin and continued Effient by herself. The patient is not receiving any chemotherapy at this time. The plan was to proceed with colon surgery after July when it will have been 3 months following coronary stenting. The patient went to work last night. She felt more short of breath. She was brought by ambulance to [facility] last night and admitted. She was found to be in AFib. She was admitted to a monitored bed. Today, she converted to sinus bradycardia. I was asked to see [facility] [address] [place] [address] CONSULTATION Name: MARY LOZANO Room #: 349-I ADM IN M.R.#: [id number] Admission: 07/17/18 Attend Phys: Tuan Guerrero, DO Discharge: Date of : 50 Report #: [id number] her for further evaluation and treatment. She actually denied any palpitations, lightheadedness. PAST MEDICAL HISTORY: Otherwise significant for cholecystectomy, carpal tunnel surgery, hysterectomy, previous resection of part of her colon in 2007 for cancer. She has a history of hypertension, diabetes, hyperlipidemia. CURRENT MEDICATIONS: Consists of Lipitor, Effient, Januvia, sotalol 120 mg twice a day. ALLERGIES: SHE HAS INTOLERANCE TO MULTIPLE MEDICATIONS INCLUDING PLAVIX, PENICILLIN, BRILINTA, AMLODIPINE, SULFA DRUGS. FAMILY HISTORY: Negative for heart disease. 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 Quit smoking years ago. No alcohol abuse. REVIEW OF SYSTEMS: No history of stroke, asthma, peptic ulcer disease, liver disease, kidney disease, chronic skin condition or psychiatric illness. PHYSICAL EXAMINATION: GENERAL: Revealed an elderly female lying in bed. She appeared in no acute distress. VITAL SIGNS: Blood pressure 140/70, pulse 54. HEENT: Mucous members moist. She is anicteric. Conjunctivae are pale. NECK: Supple. CHEST: Clear to auscultation. CARDIOVASCULAR: Regular bradycardia. ABDOMEN: Soft. EXTREMITIES: No edema. SKIN: Warm, dry. NEUROLOGIC: Nonfocal. LABORATORY DATA: Her ECG on admission last night showed atrial fibrillation with rapid ventricular response rate and a right bundle branch block. Today, ECG appears to represent sinus bradycardia. Her workup so far, she had a chest x-ray last night that showed Port-A-Cath, mild cardiomegaly, scarring in the lungs. No other acute abnormality. She actually had a CT scan of the chest that showed small effusions, atelectasis, no pulmonary embolus. She had lab work, sodium 139, potassium 3.9, BUN 12, creatinine 0.9. Liver function studies were normal. Albumin is 2.8. Troponin 0.06. She had a white blood cell count of 24,000, hemoglobin 7.5, hematocrit 24.3. She had a TSH in March of 1.18. IMPRESSION AND RECOMMENDATIONS: [facility] [address] [place] [address] CONSULTATION Name: MARY LOZANO Andrew Room #: 349-I ADM IN M.R.#: [id number] Admission: 07/17/18 Attend Phys: Tuan Guerrero DO Discharge: Date of : 50 Report #: [id number] 1. Recurrent atrial fibrillation. At this time, I have increased sotalol from 120 to 160 a day. I would not recommend anticoagulation because of her anemia. The patient is on Effient. 2. Diabetes. 3. Hypertension. The patient is on a beta jordan. 4. Previous coronary artery bypass surgery. 5. Hyperlipidemia. The patient is on a statin drug. 6. Colon cancer. I would hold off surgery until August. 7. History of gastrointestinal bleeding. 8. Anemia. 9. Shortness of breath, suspect secondary to anemia. <ELECTRONICALLY SIGNED> By: Bossman Nicole MD, FACC 07/18/18 0811 180 05 Bossman Nicole MD, FACC /nt
--- NOTE | ~2018-07-17 | EKG ---
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
--- NOTE | ~2018-07-17 | EKG ---
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
[~2018-07-17 01:30] MED LIST changes: +ASPIR 8181 MG PO; +FIRVANQ50 MG/1 ML PO; +FLORANEX GRANU1 EACH PO; +METFORMIN HCL500 MG PO; +PYRIDOXINE HCL50 MG PO; +SOTALOL 120 MG120 MG PO; +TRAMADOL 50 MG50 MG PO; +VITAMIN D1000 UNI1 PO
[2018-07-17 02:16] LABS: HEMATOCRIT 24.3 % (37.0-47.0); HEMOGLOBIN 7.5 gm/dL (12.0-15.0); MCH 24.1 pg (26.0-34.0); MCHC 30.7 g/dL (28.0-37.0); MCV 78.7 fL (80.0-100.0); PLATELET COUNT 342 thou/uL (150-400); RBC 3.09 mil/uL (4.20-5.00); RDW 20.2 % (10.5-14.5)
[2018-07-17 02:22] LABS: CALCIUM 9.1 mg/dL (8.5-10.1); CREATININE 0.9 mg/dL (0.6-1.0); POTASSIUM 3.9 mmol/L (3.5-5.1)
[2018-07-17 02:36] LABS: ABSOLUTE NEUTROPHILS 18.2 thou/uL (1.4-8.2)
[2018-07-17 02:37] LABS: ANISOCYTOSIS 2+; POLYCHROMASIA 1+
[2018-07-17 03:16] LABS: URINE BILIRUBIN NEGATIVE (Negative); URINE BLOOD NEGATIVE (Negative); URINE CLARITY CLEAR; URINE COLOR YELLOW; URINE GLUCOSE-RANDOM* NEGATIVE (Negative); URINE KETONES NEGATIVE (Negative); URINE LEUKOCYTES-REFLEX NEGATIVE (Negative); URINE NITRITE-REFLEX NEGATIVE (Negative); URINE PROTEIN (DIPSTICK) NEGATIVE (Negative); URINE SPECIFIC GRAVITY 1.025 (1.005-1.035); URINE UROBILINOGEN 0.2 E.U./dl (0.2-1.0)
[2018-07-17] MEDS ORDERED: REGLAN 10 MG TA10 MG PO (10:03)
[2018-07-17] MEDS ORDERED: ONDANSETRON HCL4 M2 PO (10:05)
[2018-07-17] MEDS ORDERED: ACETAMINOPHEN-1 EAC1 PO (10:06)
[2018-07-17 11:56] LABS: ALBUMIN 2.8 g/dL (3.4-5.0); DIRECT BILIRUBIN 0.1 mg/dL (<0.1-0.3); TOTAL BILIRUBIN 0.4 mg/dL (<0.1-1.0); TOTAL PROTEIN 6.7 g/dL (6.4-8.2)
[2018-07-18 05:10] VITALS: BP 120/42
[2018-07-18 05:28] LABS: MCH 24.3 pg (26.0-34.0); MCHC 31.1 g/dL (28.0-37.0); RBC 2.64 mil/uL (4.20-5.00)
[2018-07-18 05:30] LABS: ABSOLUTE NEUTROPHILS 11.9 thou/uL (1.4-8.2); BASOPHILS 0.5 % (0.0-2.0); EOSINOPHILS 17.7 % (0.0-3.0); HEMATOCRIT 20.7 % (37.0-47.0); LYMPHOCYTES 6.3 % (24.0-44.0); MCV 78.3 fL (80.0-100.0); MONOCYTES 10.1 % (1.0-8.0); PLATELET COUNT 282 thou/uL (150-400); POLYS 65.4 % (36.0-66.0); RDW 19.7 % (10.5-14.5); WBC 18.1 thou/uL (4.0-11.0)
[2018-07-18 05:31] LABS: CALCIUM 9.3 mg/dL (8.5-10.1); CREATININE 0.8 mg/dL (0.6-1.0); MAGNESIUM 1.7 mg/dL (1.8-2.4); POTASSIUM 3.5 mmol/L (3.5-5.1)
[2018-07-18 05:32] LABS: HEMOGLOBIN 6.4 gm/dL (12.0-15.0)
[2018-07-18 07:38] VITALS: BP 123/41
[2018-07-18 08:53] VITALS: BP 131/55; BP 135/51
[2018-07-18 10:43] VITALS: BP 122/52
[2018-07-18 16:14] VITALS: BP 127/49
[2018-07-18 19:15] VITALS: BP 122/54
[2018-07-19 05:45] VITALS: BP 150/59
[2018-07-19 06:24] LABS: HEMATOCRIT 26.9 % (37.0-47.0); HEMOGLOBIN 8.6 gm/dL (12.0-15.0); MCH 24.9 pg (26.0-34.0); MCHC 31.8 g/dL (28.0-37.0); MCV 78.3 fL (80.0-100.0); RBC 3.44 mil/uL (4.20-5.00); RDW 19.3 % (10.5-14.5); WBC 15.2 thou/uL (4.0-11.0)
[2018-07-19 06:32] LABS: CALCIUM 9.3 mg/dL (8.5-10.1); CREATININE 0.7 mg/dL (0.6-1.0); POTASSIUM 3.9 mmol/L (3.5-5.1)
[2018-07-19 08:00] VITALS: BP 164/77
[2018-07-19 12:00] VITALS: BP 138/63
[2018-07-19 16:00] VITALS: BP 141/56
[2018-07-19 19:05] VITALS: BP 153/55
[2018-07-20 03:10] VITALS: BP 172/67
[2018-07-20 07:10] VITALS: BP 172/71
[2018-07-20 11:24] VITALS: BP 166/56
[2018-07-20 15:38] VITALS: BP 162/72
[2018-07-20 19:30] VITALS: BP 177/77
[2018-07-21] VITALS (8 sets, daily range): BP systolic 128–192; BP diastolic 51–88
[2018-07-22] VITALS (10 sets, daily range): BP systolic 145–187; BP diastolic 58–100
[2018-07-22 06:38] LABS: ALBUMIN 2.4 g/dL (3.4-5.0); CALCIUM 9.8 mg/dL (8.5-10.1); CREATININE 0.6 mg/dL (0.6-1.0); PHOSPHORUS 2.1 mg/dL (2.5-4.9); POTASSIUM 3.2 mmol/L (3.5-5.1)
[2018-07-22] MEDS ORDERED: FLAGYL500 MG PO (08:52)
[2018-07-22] MEDS ORDERED: CEFDINIR300 MG PO (08:52)
[2018-07-22] MEDS ORDERED: FLORANEX GRANU1 EACH PO (08:53)
[2018-07-22] MEDS ORDERED: LASIX 40 MG TAB40 M1 PO (08:59)
[2018-07-22] MEDS ORDERED: LISINOPRIL10 MG PO (08:59)
[2018-07-22] MEDS ORDERED: SORINE 80 MG TA80 M1 PO (08:59)
[2018-07-23 03:15] VITALS: BP 164/70
[2018-07-23 07:00] VITALS: BP 186/69
[2018-07-23 08:52] VITALS: BP 146/58
[2018-07-23 10:10] LABS: HEMATOCRIT 29.7 % (37.0-47.0); HEMOGLOBIN 9.6 gm/dL (12.0-15.0); MCH 24.8 pg (26.0-34.0); MCHC 32.2 g/dL (28.0-37.0); MCV 76.9 fL (80.0-100.0); RBC 3.86 mil/uL (4.20-5.00); RDW 19.3 % (10.5-14.5); WBC 27.7 thou/uL (4.0-11.0)
[2018-07-23 10:14] VITALS: BP 147/100
[2018-07-23 10:42] VITALS: BP 147/100
== END 2018-07-23 11:25 | disposition home or self-care (01) | DRG 871 ==
LOC: ER 01:30 → 3W 04:21 → EROBS 04:21 → 3W 05:33 → ENTRNSPT 07-23 11:12 → EDTRNSPTSTS 07-23 11:21 → 3W 07-23 11:25
PROVIDERS: Emergency Medicine; Hospitalist; Nurse Practitioner; Specialist; Student in an Organized Health Care Education/Training Program
PROC: 30233N1 Transfusion of Nonautologous Red Blood Cells into Peripheral Vein, Percutaneous Approach (ICD-10-PCS; principal; 2018-07-18)
DX: A41.9 Sepsis, unspecified organism (principal); E43 Unspecified severe protein-calorie malnutrition; I50.21 Acute systolic (congestive) heart failure; C18.9 Malignant neoplasm of colon, unspecified; J81.1 Chronic pulmonary edema; E11.9 Type 2 diabetes mellitus without complications; E78.5 Hyperlipidemia, unspecified; M10.9 Gout, unspecified; I48.2 Chronic atrial fibrillation; D64.9 Anemia, unspecified; J44.9 Chronic obstructive pulmonary disease, unspecified; K57.90 Diverticulosis of intestine, part unspecified, without perforation or abscess without bleeding; G89.29 Other chronic pain; I11.0 Hypertensive heart disease with heart failure; R59.0 Localized enlarged lymph nodes; E83.39 Other disorders of phosphorus metabolism; I25.10 Atherosclerotic heart disease of native coronary artery without angina pectoris; Z95.5 Presence of coronary angioplasty implant and graft; Z95.1 Presence of aortocoronary bypass graft; I25.2 Old myocardial infarction; Z90.710 Acquired absence of both cervix and uterus; Z90.49 Acquired absence of other specified parts of digestive tract; Z88.0 Allergy status to penicillin; Z88.2 Allergy status to sulfonamides; Z88.8 Allergy status to other drugs, medicaments and biological substances; Z91.040 Latex allergy status; Z87.891 Personal history of nicotine dependence; Z79.82 Long term (current) use of aspirin; Z79.899 Other long term (current) drug therapy; Z68.28 Body mass index [BMI] 28.0-28.9, adult
CPT/HCPCS: 10879

== ENCOUNTER → 2018-10-31 | Outpatient (CLI) | payer OTHER ==
[~2018-10-31] MED LIST changes: +ACETAMINOPHEN-1 EAC1 PO; +LASIX 40 MG TAB40 M1 PO; +ONDANSETRON HCL4 M2 PO; +REGLAN 10 MG TA10 MG PO
== END ==
LOC: CAT 16:05
DX: K57.30 Diverticulosis of large intestine without perforation or abscess without bleeding (principal); I70.0 Atherosclerosis of aorta; E27.9 Disorder of adrenal gland, unspecified; R91.8 Other nonspecific abnormal finding of lung field; R59.9 Enlarged lymph nodes, unspecified; Z85.038 Personal history of other malignant neoplasm of large intestine

== ENCOUNTER 2018-11-09 01:10 | Emergency (ER) | payer OTHER ==
[~2018-11-09] VITALS: Ht 152.4 cm; Wt 58.1 kg
[2018-11-09 01:45] LABS: HEMATOCRIT 37.4 % (37.0-47.0); HEMOGLOBIN 11.8 gm/dL (12.0-15.0); MCH 25.6 pg (26.0-34.0); MCHC 31.5 g/dL (28.0-37.0); MCV 81.2 fL (80.0-100.0); RBC 4.61 mil/uL (4.20-5.00); RDW 18.2 % (10.5-14.5); WBC 9.4 thou/uL (4.0-11.0)
[2018-11-09 01:53] LABS: ANION GAP 11 mmol/L (7-16); BUN 10 mg/dL (7-18); CALCIUM 10.5 mg/dL (8.5-10.1); CHLORIDE 100 mmol/L (98-107); CO2 28 mmol/L (21-32); CREATININE 0.8 mg/dL (0.6-1.0); GLUCOSE 140 mg/dL (74-106); POTASSIUM 3.8 mmol/L (3.5-5.1); SODIUM 139 mmol/L (136-145)
[2018-11-09 02:01] LABS: ALBUMIN 3.6 g/dL (3.4-5.0); LIPASE 62 U/L (73-393); SGOT 21 U/L (15-37); SGPT 28 U/L (30-65); TOTAL BILIRUBIN 0.4 mg/dL (<0.1-1.0); TOTAL PROTEIN 8.4 g/dL (6.4-8.2); TROPONIN-I <0.06 ng/mL (<0.06)
--- NOTE | 2018-11-09 02:05 | EKG ---
[place] [address] [place] [address] ELECTROCARDIOGRAM REPORT Name: MARY LOZANO 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 : 1950 Requested By: Margy Bennett Order Number: [id number] MD: Sam Oates Measurements Intervals [place] Rate: 79 P: 52 CA: 145 QRS: -73 QRSD: 141 T: 13 QT: 451 QTc: 518 Interpretive Statements Sinus rhythm RBBB and LAFB Compared to ECG 07/18/2018 08:25:29 Left anterior fascicular block now present Atrial premature complex(es) no longer present Electronically Signed On 11-09-2018 2:05:44 [facility]IE[facility] by Sam Oates [email or web address] <ELECTRONICALLY SIGNED> By: Sam Oates MD 11/09/18 0205 0154 0154 Sam Oates MD /EPI
[2018-11-09 02:42] LABS: URINE BILIRUBIN NEGATIVE (Negative); URINE CLARITY CLEAR; URINE COLOR YELLOW; URINE GLUCOSE-RANDOM* NEGATIVE (Negative); URINE KETONES NEGATIVE (Negative); URINE PROTEIN (DIPSTICK) NEGATIVE (Negative); URINE SPECIFIC GRAVITY <= 1.005 (1.005-1.035)
[2018-11-09 02:43] LABS: URINE BLOOD NEGATIVE (Negative); URINE LEUKOCYTES-REFLEX NEGATIVE (Negative); URINE NITRITE-REFLEX NEGATIVE (Negative); URINE UROBILINOGEN 0.2 E.U./dl (0.2-1.0)
[2018-11-09] MEDS ORDERED: MS CONTIN15 MG PO (06:36)
[2018-11-09 06:50] VITALS: BP 134/53
[2018-11-14] MEDS ORDERED: KAPSPARGO SPRIN25 MG PO (16:09)
[2018-11-14] MEDS ORDERED: PERCOCET PO (16:10)
[2018-11-14] MEDS ORDERED: ASPIRIN EC81 M1 PO (16:11)
[2018-11-14] MEDS ORDERED: NORVASC5 MG PO (16:11)
[2018-11-14] MEDS ORDERED: ELIQUIS5 MG PO (16:11)
[2018-11-14] MEDS ORDERED: VITAMIN D5000 UNIT PO (16:12)
[2018-11-14] MEDS ORDERED: TRESIBA FL100 UNIT/1 SUBQ (16:16)
== END 2018-11-09 07:06 | disposition home or self-care (01) ==
LOC: ER 01:10
PROVIDERS: Student in an Organized Health Care Education/Training Program
DX: C78.5 Secondary malignant neoplasm of large intestine and rectum (principal); I25.10 Atherosclerotic heart disease of native coronary artery without angina pectoris; J44.9 Chronic obstructive pulmonary disease, unspecified; I10 Essential (primary) hypertension; E11.9 Type 2 diabetes mellitus without complications; E78.5 Hyperlipidemia, unspecified; I48.91 Unspecified atrial fibrillation; M10.9 Gout, unspecified; Z90.710 Acquired absence of both cervix and uterus; Z90.49 Acquired absence of other specified parts of digestive tract; Z87.891 Personal history of nicotine dependence; Z88.8 Allergy status to other drugs, medicaments and biological substances; Z91.040 Latex allergy status; Z95.5 Presence of coronary angioplasty implant and graft; Z88.0 Allergy status to penicillin; Z88.2 Allergy status to sulfonamides; Z91.048 Other nonmedicinal substance allergy status; Z90.89 Acquired absence of other organs

== ENCOUNTER 2018-11-14 14:46 | Emergency (ER) | payer OTHER ==
[~2018-11-14] VITALS: Ht 152.4 cm; Wt 59.0 kg
[~2018-11-14 14:46] MED LIST changes: +MS CONTIN15 MG PO
[2018-11-14 15:56] LABS: ABSOLUTE NEUTROPHILS 6.1 thou/uL (1.4-8.2); BASOPHILS 0.9 % (0.0-2.0); EOSINOPHILS 5.8 % (0.0-3.0); HEMATOCRIT 32.5 % (37.0-47.0); HEMOGLOBIN 10.6 gm/dL (12.0-15.0); LYMPHOCYTES 12.3 % (24.0-44.0); MCH 26.3 pg (26.0-34.0); MCHC 32.7 g/dL (28.0-37.0); MCV 80.3 fL (80.0-100.0); MONOCYTES 8.9 % (1.0-8.0); PLATELET COUNT 242 thou/uL (150-400); POLYS 72.1 % (36.0-66.0); RBC 4.05 mil/uL (4.20-5.00); RDW 18.1 % (10.5-14.5); WBC 8.4 thou/uL (4.0-11.0)
[2018-11-14 16:04] LABS: CALCIUM 9.5 mg/dL (8.5-10.1); CREATININE 0.8 mg/dL (0.6-1.0); POTASSIUM 3.5 mmol/L (3.5-5.1)
[2018-11-14] MEDS ORDERED: KAPSPARGO SPRIN25 MG PO ×2 (16:09)
[2018-11-14 16:10] LABS: TOTAL BILIRUBIN 0.2 mg/dL (<0.1-1.0); TOTAL PROTEIN 7.2 g/dL (6.4-8.2)
[2018-11-14] MEDS ORDERED: PERCOCET PO ×2 (16:10)
[2018-11-14] MEDS ORDERED: NORVASC5 MG PO ×2 (16:11)
[2018-11-14] MEDS ORDERED: ELIQUIS5 MG PO ×2 (16:11)
[2018-11-14] MEDS ORDERED: ASPIRIN EC81 M1 PO ×2 (16:11)
[2018-11-14] MEDS ORDERED: PIOGLITAZONE15 MG (16:12)
[2018-11-14] MEDS ORDERED: VITAMIN D5000 UNIT PO ×2 (16:12)
[2018-11-14] MEDS ORDERED: TRESIBA FL100 UNIT/1 SUBQ ×2 (16:16)
[2018-11-14 16:49] LABS: URINE CLARITY CLEAR; URINE COLOR COLORLESS
[2018-11-14 16:50] LABS: URINE BILIRUBIN NEGATIVE (Negative); URINE BLOOD TRACE (Negative); URINE GLUCOSE-RANDOM* NEGATIVE (Negative); URINE KETONES NEGATIVE (Negative); URINE LEUKOCYTES-REFLEX NEGATIVE (Negative); URINE NITRITE-REFLEX NEGATIVE (Negative); URINE PROTEIN (DIPSTICK) NEGATIVE (Negative); URINE UROBILINOGEN 0.2 E.U./dl (0.2-1.0)
[2018-11-14 19:42] VITALS: BP 117/47
== END 2018-11-14 20:31 | disposition home or self-care (01) ==
LOC: ER 14:46
PROVIDERS: Emergency Medicine
DX: C18.9 Malignant neoplasm of colon, unspecified (principal); R10.11 Right upper quadrant pain; R10.13 Epigastric pain; J44.9 Chronic obstructive pulmonary disease, unspecified; I10 Essential (primary) hypertension; E11.9 Type 2 diabetes mellitus without complications; E78.5 Hyperlipidemia, unspecified; I48.91 Unspecified atrial fibrillation; I25.10 Atherosclerotic heart disease of native coronary artery without angina pectoris; M10.9 Gout, unspecified; Z87.891 Personal history of nicotine dependence; Z88.1 Allergy status to other antibiotic agents; Z88.2 Allergy status to sulfonamides; Z88.8 Allergy status to other drugs, medicaments and biological substances; Z88.0 Allergy status to penicillin; Z95.5 Presence of coronary angioplasty implant and graft; Z90.710 Acquired absence of both cervix and uterus; Z90.49 Acquired absence of other specified parts of digestive tract; Z95.1 Presence of aortocoronary bypass graft

== ENCOUNTER 2018-11-15 18:39 | Inpatient (IN) | payer OTHER ==
[~2018-11-15] VITALS: Ht 152.4 cm; Wt 55.5 kg
--- NOTE | ~2018-11-15 | HC ---
[facility] [place] [address] [place] [address] CONSULTATION Name: MARTAMARY Room #: 204-P [facility] IN ..#: [id number] Admission: 11/15/18 Attend Phys: Marilynn Shah MD Discharge: 11/18/18 Date of : 50 Report #: [id number] THIS REPORT FOR: //name// CC: Tuan Shah HISTORY OF PRESENT ILLNESS: This patient is known to me for treatment of recurrent/metastatic adenocarcinoma of the colon. She was seen in the Emergency Room on Saturday and then again returned on Saturday and subsequently was admitted with complaints of ongoing uncontrolled pain. She was found to have a recurrent colon cancer in 03/2018 and underwent an exploratory/debulking surgery at [facility] with Dr. Laura Gutierrez on 09/01/2018. At that time, a large ileocolonic recurrence was resected, but an ongoing focus of adenopathy surrounding the pancreatic head was not removed. I saw the patient back in September, at which time, she refused consideration of chemotherapy due to earlier toxicity and side effects. Her tumor was found to be a high PD-L1 expresser along with MSI instability and she was begun on Keytruda this past Saturday. However, she had actually gone to the Emergency Room prior to this treatment with complaints of uncontrolled abdominal pain. She had no initial side effects from Keytruda while in the clinic, but noticed increasing pain on Saturday night, leading to her Emergency Room visit. Her cancer history dates to 2007 when she underwent a colon resection by Dr. Martin and was seen by Dr. Lozano. She did not receive adjuvant therapy and was lost to follow up. PAST MEDICAL HISTORY: Significant for coronary artery disease along with previous bypass grafting and a drug-eluting stent that was placed in 2016. She has medically managed hypertension and hyperlipidemia. She has exogenous obesity and prior hysterectomy along with hand surgery. ALLERGIES: PLAVIX, PENICILLIN, BRILINTA, ZOLPIDEM, CELEBREX, LATEX AND SULFA. MEDICATIONS: As listed in the MFR. REVIEW OF SYSTEMS: As noted in the history of present illness. She has not had sweats, chills, fevers or new palpable masses. PHYSICAL EXAMINATION: GENERAL: Shows her to be alert. HEENT: Eyeglasses. NECK: Supple. CHEST: Clear. CARDIOVASCULAR: Normal S1, S2. [address] [address] CONSULTATION Name: JACEY LOZANOEZ Morales Room #: 204-P [facility] IN .R.#: [id number] Admission: 11/15/18 Attend Phys: Marilynn Shah MD Discharge: 11/18/18 Date of : 50 Report #: [id number] ABDOMEN: Soft. EXTREMITIES: Show no clubbing, cyanosis, edema. SKIN: Normal turgor. NEUROLOGIC: No focal localizing signs. PSYCHIATRIC: Not agitated or confused. LABORATORY DATA: Her scan from [place] was reviewed. I am also clouding over a PET scan from 11/03/2018 showing the same lung nodule as noted along with worsening extensive hypermetabolic, mesenteric, gastrohepatic, peripancreatic, retroperitoneal and bilateral pelvic brendon metastatic disease. ASSESSMENT: Recurrent/metastatic adenocarcinoma. PLAN: She understands it is too early to expect a response from the recently administered immune checkpoint inhibitor. It is possible that increases pain is based on her therapy, which actually might indicate a potential response, but it is too early to tell. We discussed possible placement of a fentanyl patch to try to control her pain along with ongoing p.r.n. narcotics, which have been poorly tolerated and ineffective to date. Thanks again for allowing me to see her in consultation and being asked to participate in her care. By: 1442 1709 Laura Fischer MD /nt
--- NOTE | ~2018-11-15 | HC ---
[facility] [place] [address] CONSULTATION Name: MARY LOZANO Room #: 204-P [facility] IN ..#: [id number] Admission: 11/15/18 Attend Phys: Joshua Cummins MD Discharge: Date of : 50 Report #: [id number] THIS REPORT FOR: //name// CC: Bossman Nicole MD [facility] Tuan Meyer MD TYPE OF REPORT: Cardiology consultation. INDICATION: Recurrent atrial fibrillation. HISTORY OF PRESENT ILLNESS: The patient is a 68-year-old white female with paroxysmal atrial fibrillation. She had been maintaining sinus rhythm on metoprolol alone. She reports intolerance to sotalol and amiodarone. She was admitted to the hospital with abdominal pain. She has a history of metastatic colon cancer. Last week, she was noted by EKG to be in sinus rhythm. Presently on telemetry, she is in atrial fibrillation with fairly controlled ventricular response rate. She has history of coronary artery disease with 3-vessel coronary artery bypass grafting at [facility] in 2009. She had percutaneous coronary intervention in 2014, 2016 and 2018. She has normal left ventricular systolic function by noninvasive studies. She has a patent GAMING graft to her LAD. She has a patent saphenous vein graft to the PDA of the right coronary artery. A vein graft to the diagonal was occluded. She is not having angina. She remains on Eliquis 5 mg b.i.d., aspirin 81 mg daily, and Effient 10 mg daily. She is not having bleeding problems. PAST MEDICAL HISTORY: 1. Coronary artery disease. 2. Metastatic colon cancer, status post resection x 2. 3. Cholecystectomy. 4. Carpal tunnel release. 5. Hysterectomy. 6. Hypertension. 7. Type 2 diabetes mellitus. 8. Hyperlipidemia. ALLERGIES: Intolerance to PLAVIX, PENICILLIN, BRILINTA, AMLODIPINE, SULFA, AMIODARONE and SOTALOL. CURRENT MEDICATIONS: 5 mg daily, Eliquis 5 mg b.i.d., aspirin 81 mg daily, atorvastatin 40 mg at bedtime, vitamin D 5000 units at bedtime, Tresiba FlexTouch 3 units subcutaneously daily, lisinopril 10 mg at bedtime, Reglan 10 mg t.i.d., metoprolol succinate 25 mg daily, morphine extended release 50 mg q. 12 hours, hydrocodone/acetaminophen 5/325 q. 4 hours p.r.n., Protonix [address] [address] CONSULTATION Name: MARY LOZANO Room #: 204-P [facility] IN [facility]#: [id number] Admission: 11/15/18 Attend Phys: Joshua Cummins MD Discharge: Date of : 50 Report #: [id number] and Effient 10 mg daily. FAMILY HISTORY: Noncontributory. SOCIAL HISTORY: The patient is single. She lives in [place]. She quit smoking many years ago. She does not drink alcohol. REVIEW OF SYSTEMS: As per HPI. She also was complaining of some ongoing abdominal pain. She denies nausea or vomiting. She has anorexia. PHYSICAL EXAMINATION: VITAL SIGNS: Blood pressure 112/45 and pulse is in the 80s and irregular. GENERAL: This is a pleasant lady in mild distress because of abdominal pain. HEENT: Head is normocephalic and atraumatic. Extraocular muscles intact. Mucous membranes are moist. NECK: Shows no jugular venous distention. There are no carotid bruits. CHEST: Reveals clear lung garner. CARDIOVASCULAR: Reveals an irregularly irregular rhythm without gallop or murmur. ABDOMEN: Reveals diffuse tenderness without rebound. Bowel sounds present. EXTREMITIES: Show no edema. SKIN: Warm and dry. IMPRESSION AND RECOMMENDATIONS: 1. Paroxysmal atrial fibrillation with recurrence. At this point in time, we will continue her metoprolol. Continue her Eliquis and start flecainide 50 mg b.i.d. Continue Telemetry monitoring. There was some discussion about possible ablation in the future. At this point, the patient is holding off it as she has been through multiple other procedures recently. 2. Coronary artery disease, presently stable. She is on dual antiplatelet therapy for recent intervention. I would not recommend triple therapy and would discontinue aspirin and continue Effient alone. 3. Metastatic colon cancer per Oncology and primary physician. 4. Hypertension. Blood pressure adequately controlled on current regimen. 5. Hyperlipidemia. Continue atorvastatin at current dose. By: 1430 0116 Rajiv Pop MD, FACC /nt
[~2018-11-15 18:39] MED LIST changes: +ASPIRIN EC81 M1 PO; +KAPSPARGO SPRIN25 MG PO; +PERCOCET PO; +PIOGLITAZONE15 MG; +TRESIBA FL100 UNIT/1 SUBQ; +VITAMIN D5000 UNIT PO
[2018-11-15 18:40] VITALS: BP 142/67
[2018-11-15 20:02] LABS: BASOPHILS 0.5 % (0.0-2.0); EOSINOPHILS 0.8 % (0.0-3.0); HEMATOCRIT 34.2 % (37.0-47.0); HEMOGLOBIN 11.3 gm/dL (12.0-15.0); MCH 26.6 pg (26.0-34.0); MCHC 32.9 g/dL (28.0-37.0); MCV 80.8 fL (80.0-100.0); MONOCYTES 8.5 % (1.0-8.0); PLATELET COUNT 216 thou/uL (150-400); POLYS 86.2 % (36.0-66.0); RBC 4.24 mil/uL (4.20-5.00); RDW 17.7 % (10.5-14.5); WBC 9.3 thou/uL (4.0-11.0)
[2018-11-15 20:11] LABS: CALCIUM 9.8 mg/dL (8.5-10.1); CREATININE 0.7 mg/dL (0.6-1.0); POTASSIUM 3.7 mmol/L (3.5-5.1)
[2018-11-15 20:17] LABS: TOTAL BILIRUBIN 0.4 mg/dL (<0.1-1.0); TOTAL PROTEIN 7.6 g/dL (6.4-8.2)
[2018-11-15 23:44] VITALS: BP 158/119
[2018-11-16] VITALS (12 sets, daily range): BP systolic 109–161; BP diastolic 45–119
--- NOTE | 2018-11-16 06:19 | NUR ---
PT. ARRIVED AT 00:20. AOX4; C/O PAIN; 08/06; HEART MONITOR SHOWED A-FIB; ASSESSMENT PERFORM CHARGED; PRN IV PAIN MEDICATION GIVEN AROUND 01:30; RE-ASSESSMENT 08/06; PRN PO PAIN MEDICATION GIVEN AROUND 02:15; RE-ASSESSMENT 07/07; HEART MONITOR SHOWED HR BETWEEN 110 AND 130; INVESTMENT UNDERWRITER CONTACTED; ORDERS RECEIVED; CARDIZEM DRIP STARTED; TITRATED CHARDED; AT 0431 PT'S HR ON 80'S CARDIZEM TITRATED TO 5 MG/H. IV PRN PAIN MEDICATION GIVEN; RE-ASSESSMENT PT. SLEEPING; 03/06; PT. EDUCATED ABOUT PAIN CONTROL WITH PRN IV AND PO PAIN MEDICATION AND PAIN MANAGEMENT; VS STABLES. FOLLOWING TELEPHONE INTERVIEWER.
[2018-11-16 07:37] LABS: URINE BILIRUBIN NEGATIVE (Negative); URINE BLOOD TRACE (Negative); URINE CLARITY CLEAR; URINE COLOR YELLOW; URINE GLUCOSE-RANDOM* NEGATIVE (Negative); URINE KETONES 1+ (Negative); URINE LEUKOCYTES-REFLEX NEGATIVE (Negative); URINE NITRITE-REFLEX NEGATIVE (Negative); URINE PROTEIN (DIPSTICK) NEGATIVE (Negative); URINE UROBILINOGEN 0.2 E.U./dl (0.2-1.0)
--- NOTE | 2018-11-16 12:03 | EKG ---
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[place] : 1950 Requested By: Margy Bennett Order Number: [id number] MD: Dario Rocha Measurements Intervals [place] Rate: 113 P: [place]: QRS: 236 QRSD: 136 T: 10 QT: 357 QTc: 490 Interpretive Statements Atrial fibrillation with a rapid ventricular response Right bundle branch block Leftward axis Compared to ECG 11/09/2018 01:54:30 Atrial fibrillation has replaced sinus rhythm Electronically Signed On 11-16-2018 12:03:18 TRANSITION SPECIALIST by Dario Rocha [email or web address] <ELECTRONICALLY SIGNED> By: Dario Rocha MD, [facility] 11/16/18 1203 37 37 Dario Rocha MD, FAC /EPI
--- NOTE | 2018-11-16 17:51 | NUR ---
ASSESSMENTS COMPLETED AND DOCUMENTED. PT DID NOT EAT MUCH UNTIL EVENING AND HAD SOME DINNER. PAIN WAS NOT BEING CONTROLLED WITH MEDICATION. NEW ORDERS FOR FENTANYL RECIEVED. PT CONCERNED WITH WHY THE PAIN IS THERE. FLECAINIDE PO STARTED. IV CARDIZEM STOPPED AT 1800. KEPT ON 1L O2 AND MONITORING BECAUSE OF PAIN MEDS. WILL CONTINUE TO MONITOR.
[2018-11-17 00:37] VITALS: BP 113/59
[2018-11-17 03:57] LABS: CALCIUM 9.4 mg/dL (8.5-10.1); CREATININE 0.6 mg/dL (0.6-1.0); POTASSIUM 3.3 mmol/L (3.5-5.1)
[2018-11-17 07:35] VITALS: BP 114/53
--- NOTE | 2018-11-17 07:39 | NUR ---
ASSUME CARE 1900. PT/VITALS STABLE. ADEQUATE SLEEP NOTED THROUGH THE NIGHT. SR ON MONITRO. ASSESSMENT CHARTED. PROFGRESSING WELL WITH POC. IUP AD HERI WITH SUPERVISION. DENIES ANY CHEST PAIN. WILL CONTINUE TO MONITOR AND FOLLOW WITH POC
[2018-11-17 11:45] VITALS: BP 108/53
[2018-11-17 15:55] VITALS: BP 96/55
[2018-11-17 20:06] VITALS: BP 126/72
[2018-11-18 03:31] LABS: CREATININE 0.8 mg/dL (0.6-1.0); MAGNESIUM 1.5 mg/dL (1.8-2.4); POTASSIUM 3.9 mmol/L (3.5-5.1)
[2018-11-18 03:37] LABS: HEMATOCRIT 30.2 % (37.0-47.0); HEMOGLOBIN 9.8 gm/dL (12.0-15.0); MCH 26.4 pg (26.0-34.0); MCHC 32.6 g/dL (28.0-37.0); MCV 81.1 fL (80.0-100.0); RBC 3.72 mil/uL (4.20-5.00); RDW 17.7 % (10.5-14.5); WBC 6.3 thou/uL (4.0-11.0)
[2018-11-18 03:54] VITALS: BP 111/41
--- NOTE | 2018-11-18 06:54 | NUR ---
ASSUME CARE 1900. PT/VITALS STABLE. CONSTANT ABDO PAIN NOTED WITH SOME RELIEF FROM PAIN MEDICATIONS. UP AD HERI. PT STILL AFIB ON MONITOR BUT HR IS CONTROLLED AND GOING ON NAILA SIDE. PT IN 40s AND 50S THROUGH THE NIGHT. [place] HELD THIS AM. DR FLOYD AWARE. ASSESSMENT CHARTED. PROGRESSING WELL WITH POC. PLAN IS TO CONTROL HR WITH CARDIZEM. WILL CONTINUE TO FOLLOW WITH POC
[2018-11-18 07:35] VITALS: BP 91/39
[2018-11-18 11:20] VITALS: BP 107/44
[2018-11-18] MEDS ORDERED: ALBUTEROL2.5 MG/0.5 INH ×2 (12:23)
[2018-11-18] MEDS ORDERED: MS CONTIN15 MG PO ×2 (12:23)
[2018-11-18] MEDS ORDERED: MIRALAX17 GM PO ×2 (12:23)
[2018-11-18] MEDS ORDERED: PERCOCET PO ×2 (12:23)
[2018-11-18] MEDS ORDERED: FENTANYL1 EAC1 TRANSDERM ×2 (12:23)
[2018-11-18] MEDS ORDERED: ACETAMINOPHEN325 M1 PO ×2 (12:23)
--- NOTE | 2018-11-18 13:34 | NUR ---
met with patient she resides in [facility] alone. She questions if she can dc home tomorrow. Discussed she is to dc today and orders rec for today. She is agreeable and reports she has a ride home. Discussed Home health care. Patient agreeable to rec and has used [facility] in past and agreeable to use again. Called [facility] to see if they can follow.
[2018-11-18 13:38] VITALS: BP 107/44
[2018-11-18 15:34] VITALS: BP 107/44
--- NOTE | 2018-11-18 15:34 | NUR ---
patient accepted by [facility] for home health care.
== END 2018-11-18 16:30 | disposition home health service (06) | DRG 374 ==
LOC: ER 18:39 → 2N 23:20 → EROBS 23:20 → 2N 11-16 00:01 → ENTRNSPT 11-18 15:12 → EDTRNSPTSTS 11-18 15:19 → 2N 11-18 16:30
PROVIDERS: Internal Medicine; Nurse Practitioner Family; Student in an Organized Health Care Education/Training Program; ADMIT Internal Medicine
DX: C78.5 Secondary malignant neoplasm of large intestine and rectum (principal); E43 Unspecified severe protein-calorie malnutrition; G89.3 Neoplasm related pain (acute) (chronic); I25.10 Atherosclerotic heart disease of native coronary artery without angina pectoris; J44.9 Chronic obstructive pulmonary disease, unspecified; T45.1X5A Adverse effect of antineoplastic and immunosuppressive drugs, initial encounter; K21.9 Gastro-esophageal reflux disease without esophagitis; E55.9 Vitamin D deficiency, unspecified; I48.2 Chronic atrial fibrillation; K57.90 Diverticulosis of intestine, part unspecified, without perforation or abscess without bleeding; M10.9 Gout, unspecified; I10 Essential (primary) hypertension; I48.0 Paroxysmal atrial fibrillation; E78.5 Hyperlipidemia, unspecified; E11.9 Type 2 diabetes mellitus without complications; E66.09 Other obesity due to excess calories; Z68.23 Body mass index [BMI] 23.0-23.9, adult; Z87.891 Personal history of nicotine dependence; I25.2 Old myocardial infarction; Z90.49 Acquired absence of other specified parts of digestive tract; Z85.038 Personal history of other malignant neoplasm of large intestine; Z92.21 Personal history of antineoplastic chemotherapy; Z95.1 Presence of aortocoronary bypass graft; Z95.5 Presence of coronary angioplasty implant and graft; Z90.710 Acquired absence of both cervix and uterus; Z79.01 Long term (current) use of anticoagulants; Z79.4 Long term (current) use of insulin; Z79.82 Long term (current) use of aspirin; Z79.899 Other long term (current) drug therapy; Z91.040 Latex allergy status; Z88.0 Allergy status to penicillin; Z88.2 Allergy status to sulfonamides; Z88.8 Allergy status to other drugs, medicaments and biological substances; Z91.048 Other nonmedicinal substance allergy status; Y92.89 Other specified places as the place of occurrence of the external cause; R11.2 Nausea with vomiting, unspecified
CPT/HCPCS: 10081

== ENCOUNTER → 2019-03-16 | Outpatient (CLI) | payer OTHER ==
[~2019-03-16] MED LIST changes: +ALBUTEROL2.5 MG/0.5 INH; +FENTANYL1 EAC1 TRANSDERM; +MIRALAX17 GM PO
== END ==
LOC: RAD 08:36
DX: M19.011 Primary osteoarthritis, right shoulder (principal); M19.012 Primary osteoarthritis, left shoulder; M19.032 Primary osteoarthritis, left wrist; M19.031 Primary osteoarthritis, right wrist; G89.29 Other chronic pain; C18.9 Malignant neoplasm of colon, unspecified; C77.2 Secondary and unspecified malignant neoplasm of intra-abdominal lymph nodes

== ENCOUNTER 2019-04-19 16:12 | Emergency (ER) | payer OTHER ==
[~2019-04-19] VITALS: Ht 152.4 cm; Wt 58.1 kg
[2019-04-19 16:59] LABS: ABSOLUTE NEUTROPHILS 6.4 thou/uL (1.4-8.2); BASOPHILS 0.8 % (0.0-2.0); EOSINOPHILS 0.1 % (0.0-3.0); HEMATOCRIT 40.1 % (37.0-47.0); HEMOGLOBIN 13.3 gm/dL (12.0-15.0); LYMPHOCYTES 9.3 % (24.0-44.0); MCH 26.5 pg (26.0-34.0); MCHC 33.1 g/dL (28.0-37.0); MCV 80.1 fL (80.0-100.0); MONOCYTES 10.6 % (1.0-8.0); PLATELET COUNT 197 thou/uL (150-400); POLYS 79.2 % (36.0-66.0); RBC 5.01 mil/uL (4.20-5.00); RDW 18.9 % (10.5-14.5); WBC 8.1 thou/uL (4.0-11.0)
[2019-04-19 17:00] LABS: CALCIUM 9.9 mg/dL (8.5-10.1); CREATININE 0.8 mg/dL (0.6-1.0); POTASSIUM 3.8 mmol/L (3.5-5.1)
[2019-04-19 17:07] LABS: ALBUMIN 3.8 g/dL (3.4-5.0); DIRECT BILIRUBIN 0.2 mg/dL (<0.1-0.3); TOTAL BILIRUBIN 0.5 mg/dL (<0.1-1.0); TOTAL PROTEIN 8.3 g/dL (6.4-8.2)
[2019-04-19 18:08] LABS: URINE BILIRUBIN NEGATIVE (Negative); URINE BLOOD 2+ (Negative); URINE CLARITY CLEAR; URINE COLOR YELLOW; URINE GLUCOSE-RANDOM* NEGATIVE (Negative); URINE KETONES NEGATIVE (Negative); URINE LEUKOCYTES-REFLEX NEGATIVE (Negative); URINE NITRITE-REFLEX NEGATIVE (Negative); URINE PROTEIN (DIPSTICK) 2+ (Negative)
[2019-04-19 18:21] LABS: SQUAMOUS 0-3 Few /LPF (0-3)
[2019-04-19 18:22] LABS: URINE WBC-REFLEX 6-15 Few /HPF (0-5)
[2019-04-19 18:23] LABS: BACTERIA-REFLEX None Seen /HPF (None Seen); CASTS None Seen /LPF (None Seen); CRYSTALS None Seen /LPF (None Seen); URINE RBC 3-10 Few /HPF (0-2)
[2019-04-19 19:54] VITALS: BP 128/57
== END 2019-04-19 20:00 | disposition home or self-care (01) ==
LOC: ER 16:12
PROVIDERS: Emergency Medicine
DX: R50.9 Fever, unspecified (principal); J44.9 Chronic obstructive pulmonary disease, unspecified; I25.10 Atherosclerotic heart disease of native coronary artery without angina pectoris; I10 Essential (primary) hypertension; E11.9 Type 2 diabetes mellitus without complications; E78.5 Hyperlipidemia, unspecified; I48.91 Unspecified atrial fibrillation; M10.9 Gout, unspecified; Z87.891 Personal history of nicotine dependence; Z88.0 Allergy status to penicillin; Z88.2 Allergy status to sulfonamides; Z88.8 Allergy status to other drugs, medicaments and biological substances; Z91.040 Latex allergy status; Z91.048 Other nonmedicinal substance allergy status; Z86.2 Personal history of diseases of the blood and blood-forming organs and certain disorders involving the immune mechanism; Z90.710 Acquired absence of both cervix and uterus; Z90.49 Acquired absence of other specified parts of digestive tract; Z90.89 Acquired absence of other organs; Z85.038 Personal history of other malignant neoplasm of large intestine; Z79.4 Long term (current) use of insulin

== ENCOUNTER 2019-06-04 20:16 | Inpatient (IN) | payer OTHER ==
[~2019-06-04] VITALS: Ht 157.5 cm; Wt 62.6 kg
[2019-06-04 20:17] VITALS: BP 181/86
[2019-06-04] MEDS ORDERED: SPIRIVA INH (20:27)
[2019-06-04] MEDS ORDERED: IRON325 PO (20:27)
[2019-06-04] MEDS ORDERED: PROTONIX40 M1 PO (20:28)
[2019-06-04] MEDS ORDERED: LISINOPRIL10 MG PO (20:28)
[2019-06-04] MEDS ORDERED: NORVASC5 MG PO (20:28)
[2019-06-04] MEDS ORDERED: TOPROL XL25 MG PO (20:29)
[2019-06-04] MEDS ORDERED: LOPERAMIDE 2 MG2 M1 PO (20:30)
[2019-06-04 20:32] LABS: HEMATOCRIT 42.7 % (37.0-47.0); HEMOGLOBIN 14.4 gm/dL (12.0-15.0); MCH 28.5 pg (26.0-34.0); MCHC 33.8 g/dL (28.0-37.0); MCV 84.2 fL (80.0-100.0); PLATELET COUNT 236 thou/uL (150-400); RBC 5.07 mil/uL (4.20-5.00)
[2019-06-04 20:48] LABS: ANION GAP 6 mmol/L (7-16); BUN 11 mg/dL (7-18); CALCIUM 10.2 mg/dL (8.5-10.1); CHLORIDE 102 mmol/L (98-107); CO2 30 mmol/L (21-32); CREATININE 0.9 mg/dL (0.6-1.0); GLUCOSE 145 mg/dL (74-106); POTASSIUM 3.5 mmol/L (3.5-5.1); SODIUM 138 mmol/L (136-145)
[2019-06-04 20:57] LABS: TROPONIN-I <0.06 ng/mL (<0.06)
[2019-06-04 21:14] LABS: ANISOCYTOSIS 1+
[2019-06-04 23:55] VITALS: BP 117/58
--- NOTE | 2019-06-04 23:56 | NUR ---
PRINTED HAND OFF TOOL TO CCU
--- NOTE | 2019-06-05 00:12 | NUR ---
REPORT TO ASIF, INPATIENT RN ON CCU.
[2019-06-05 00:15] VITALS: BP 125/65
[2019-06-05 00:16] LABS: ALBUMIN 2.8 g/dL (3.4-5.0); CHOLESTEROL 198 mg/dL (<200); DIRECT BILIRUBIN < 0.1 mg/dL (<0.1-0.3); HDL CHOLESTEROL 38 mg/dL (>40); LDL CHOLESTEROL 131 mg/dL (<100); MAGNESIUM 1.6 mg/dL (1.8-2.4); SGOT 15 U/L (15-37); SGPT 21 U/L (30-65); TC:HDL 5.2 Ratio (Not establshd); TOTAL BILIRUBIN 0.2 mg/dL (<0.1-1.0); TOTAL PROTEIN 6.6 g/dL (6.4-8.2); TRIGLYCERIDE 148 mg/dL (<150); VLDL 30 mg/dL (<40)
[2019-06-05 00:20] LABS: SERUM ASSESSMENT Clear
[2019-06-05 00:30] VITALS: BP 157/84
[2019-06-05 04:31] VITALS: BP 125/51
--- NOTE | 2019-06-05 05:51 | NUR ---
PT. ARRIVED AROUND 0100; AXO4; ABLE TO AMBULATE FROM STRECHER TO BED; ST. C/O HEADACHE; 07/07; ABLE TO AMBULATE WITHOU ASSISSTANCE; NO CP; AFIB; HR ON THE 90s; TROPONIN 2 ELEVATED; RISK MANAGEMENT DIRECTOR NOTIFIED; CARDIOLOGY NOTIFIED; MONITORING; NO NEW ORDERS; HS MEDICATION GIVEN; REQUESTED TO HAVE SNACK & DRINK; OK WITH RISK MANAGEMENT DIRECTOR; NPO AFTER 0230; EDUCATED ABOUT CALLING IMMEDIATELY IF CP PRESENT; ST. UNDERSTANDING; ADMISSION PERFORMED; ASSESSMENT CHARGED; FOLLOWING POC; MONITORING; WILL PASS ON REPORT.
[2019-06-05 09:11] VITALS: BP 132/86
[2019-06-05 12:02] VITALS: BP 133/86
--- NOTE | 2019-06-05 13:40 | EKG ---
[address] [address] ELECTROCARDIOGRAM REPORT Name: JACEY LOZANOEZ Morales Room #: 210-P ADM IN M.R.#: [id number] Admission: 06/04/19 Attend Phys: Erick Jerome MD Discharge: Date of : 50 Report #: [id number] THIS REPORT FOR: //name// [facility] ED Test Date: 2019-06-04 Test Time: 20:18:36 Pat Name: MARY LOZANO Department: Room: 210 Gender: F Visual Education Director: CAROLE : 1950 Requested By: Rajiv Norman Order Number: [id number] MD: Dakota Meyer Measurements Intervals [place] Rate: 130 P: [place]: QRS: -135 QRSD: 120 T: 47 QT: 327 QTc: 481 Interpretive Statements Atrial fibrillation Right bundle branch block Nonspecific ST segment abnormalities Compared to ECG 11/15/2018 19:38:01 No significant change Electronically Signed On 06-05-2019 13:40:38 CDT by Dakota Meyer [email or web address] <ELECTRONICALLY SIGNED> By: Dakota Meyer MD 06/05/19 1340 17 17 Dakota Meyer MD /ELEUTERIO
--- NOTE | 2019-06-05 13:41 | EKG ---
[address] [address] ELECTROCARDIOGRAM REPORT Name: MARY LOZANO Andrew Room #: 210-P ADM IN M.R.#: [id number] Admission: 06/04/19 Attend Phys: Erick Jerome MD Discharge: Date of : 50 Report #: [id number] THIS REPORT FOR: //name// 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
--- NOTE | 2019-06-05 13:41 | EKG ---
[address] [place] [address] ELECTROCARDIOGRAM REPORT Name: JACEY LOZANOEZ Morales Room #: 210-P ADM IN M.R.#: [id number] Admission: 06/04/19 Attend Phys: Erick Jerome MD Discharge: Date of : 50 Report #: [id number] THIS REPORT FOR: //name// [facility] ED Test Date: 2019-06-04 Test Time: 20:49:05 Pat Name: MARY LOZANO Department: Room: 210 Gender: F Customer Specialist: [place] : 1950 Requested By: Rajiv Norman Order Number: [id number] MD: Dakota Meyer Measurements Intervals [place] Rate: 134 P: [place]: QRS: -131 QRSD: 123 T: 46 QT: 364 QTc: 544 Interpretive Statements Atrial fibrillation Right bundle branch block Nonspecific ST segment abnormalities Compared to ECG 11/15/2018 19:38:01 No significant change Electronically Signed On 06-05-2019 13:41:21 CDT by Dakota Meyer [email or web address] <ELECTRONICALLY SIGNED> By: Dakota Meyer MD 06/05/19 1341 2049 2049 Dakota Meyer MD /ELEUTERIO
--- NOTE | 2019-06-05 13:41 | EKG ---
[address] [address] ELECTROCARDIOGRAM REPORT Name: JACEY LOZANOEZ Morales Room #: 210-P ADM IN M.R.#: [id number] Admission: 06/04/19 Attend Phys: Erick Jerome MD Discharge: Date of : 50 Report #: [id number] THIS REPORT FOR: //name// [facility] ED Test Date: 2019-06-04 Test Time: 20:50:41 Pat Name: MARY LOZANO Department: Room: 210 Gender: F High Court Justice: [place] : 1950 Requested By: Rajiv Norman Order Number: [id number] MD: Dakota Meyer Measurements Intervals [place] Rate: 122 P: [place]: QRS: -139 QRSD: 123 T: 41 QT: 350 QTc: 499 Interpretive Statements Atrial fibrillation IVCD, consider atypical RBBB Compared to ECG 11/15/2018 19:38:01 Left-axis deviation no longer present Electronically Signed On 06-05-2019 13:41:30 CDT by Dakota Meyer [email or web address] <ELECTRONICALLY SIGNED> By: Dakota Meyer MD 06/05/19 1341 49 MD MELODY Berg
--- NOTE | 2019-06-05 13:44 | EKG ---
[address] [address] ELECTROCARDIOGRAM REPORT Name: JACEY LOZANOEZ Morales Room #: 210-P ADM IN M.R.#: [id number] Admission: 06/04/19 Attend Phys: Erick Jerome MD Discharge: Date of : 50 Report #: [id number] THIS REPORT FOR: //name// [facility] Test Date: 2019-06-05 Test Time: 07:29:22 Pat Name: MARY LOZANO Department: Room: 210 Gender: F Wound Care Technician: rukhsana : 1950 Requested By: Ruby Vincent Order Number: [id number] MD: Dakota Meyer Measurements Intervals [place] Rate: 85 P: [place]: QRS: -111 QRSD: 136 T: 48 QT: 433 QTc: 515 Interpretive Statements Atrial fibrillation RBBB and LAFB Compared to ECG 11/15/2018 19:38:01 Left anterior fascicular block now present Left-axis deviation no longer present Electronically Signed On 06-05-2019 13:43:51 CDT by Dakota Meyer [email or web address] <ELECTRONICALLY SIGNED> By: Dakota Meyer MD 06/05/19 1343 8 8 Dakota Meyer MD /ELEUTERIO
--- NOTE | 2019-06-05 17:56 | NUR ---
PT CARE ASSUMED APPROX O700. PT ALERT AND ORIENTED X4. DENIES PAIN AND SOA. VSS. CARDIAC CATH SCHEDULED FOR SATURDAY. PT AGREEABLE. ANTICOAG ON HOLD. PT UP AD HERI WITH STEADY GAIT. BS WNL. PUT IN CONTACT ISOLATION FOR VRE PER ID NURSE. PT TOELRATING POC. DENIES QUESTIONS OR CONCERNS REGARDING POC. NO DISTRESS NOTED.
[2019-06-05 20:15] VITALS: BP 134/58
[2019-06-06 00:08] LABS: GLYCOHEMOGLOBIN (HGB A1C) 5.9 % (4.8-5.6)
--- NOTE | 2019-06-06 04:14 | NUR ---
Pt. rested quietly at intervals during the night when checked on during frequent rounds. She offers no c/o chest pain. Up ad diana in her room. Continues in contact isolation for vre.
[2019-06-06 05:36] VITALS: BP 126/62
--- NOTE | 2019-06-06 11:04 | EKG ---
[address] [address] ELECTROCARDIOGRAM REPORT Name: JACEY LOZANOEZ Morales Room #: 210-P ADM IN M.R.#: [id number] Admission: 06/04/19 Attend Phys: Erick Jerome MD Discharge: Date of : 50 Report #: [id number] THIS REPORT FOR: //name// [facility] Test Date: 2019-06-06 Test Time: 09:35:06 Pat Name: MARY LOZANO Department: Room: 210 P Gender: F Stick Welder: Richy BENEDICT : 1950 Requested By: Dakota Meyer Order Number: [id number] MD: Dakota Meyer Measurements Intervals [place] Rate: 103 P: [place]: QRS: -101 QRSD: 127 T: -5 QT: 390 QTc: 511 Interpretive Statements Atrial fibrillation RBBB and LAFB Compared to ECG 06/05/2019 07:29:22 No significant changes Electronically Signed On 06-06-2019 11:03:48 CDT by Dakota Meyer [email or web address] <ELECTRONICALLY SIGNED> By: Dakota Meyer MD 06/06/19 1103 0935 0935 Dakota Meyer MD /ELEUTERIO
[2019-06-06 11:32] VITALS: BP 106/64
--- NOTE | 2019-06-06 18:53 | NUR ---
PT CARE ASSUMED APPROX 0700. PT ALERT AND ORIENTED X4. DENIES PAIN AND SOA, VSS AT THIS TIME. EARLIER IN THE SHIFT PT GOT UP FROM BED TO USE TO BATHROOM AND HR BECAME RAPID. PT THEN BEGAN TO C/O 7/[address] VILLANUEVA WAS ON THE UNIT AND WROTE ORDERS-SEE ORDERS. EKG NEGATIVE ST CHANGES, HEP GTT ADDED TO POC. PT TOLERATED THESE CHANGES TO POC AND OTHER ORDERS. ONCE HR NORMALIZED PT CHEST PAIN RESOLVED. GTT HAS REQUIRED TITRATION PER PROTOCOL. PT HAS ASKED MULTIPLE QUESTIONS REGARDING POC THIS SHIFT BUT WHEN ASKED IF SHE UNDERSTANDS SHE ALWAYS SAYS NO. SEVERAL REATTEMPTS MADE TO GET PT TO UNDERSTAND BUT PT REPORTS THAT SHE UNDERSTANDS. THIS SLIP OPERATOR ASKED THE PT TO SIMPLY REVIEW POC WITH DRs THEY ROUND. NO DISTRESS NOTED AT THIS TIME. FAMILY AT BEDSIDE THIS EVENING. VS HAVE REMAINED STABLE SINCE INTERVENTIONS FROM THIS AM.
[2019-06-06 19:48] VITALS: BP 104/61
[2019-06-07 04:03] VITALS: BP 110/62
--- NOTE | 2019-06-07 05:20 | NUR ---
ASSESSMENT DOCUMENTED.PT BEEN RESTING IN NO ACUTE DISTRESS.A/OX4.VSS.PT CONT ON HEPARIN PER PROTOCOL.DENIES CHEST PAIN SO FAR THIS SHIFT.UP AD HERI TO BR,STEADY GAIT.POC IS TO GO FOR [facility] [place] ON SATURDAY AM.WILL CONT TO MONITOR PER POC.
[2019-06-07 08:43] VITALS: BP 114/62
[2019-06-07 11:45] VITALS: BP 138/52
[2019-06-07 16:52] VITALS: BP 121/56
--- NOTE | 2019-06-07 19:04 | NUR ---
ASSUMED PT CARE AT 0700. PT AX0 X4. ASSESSMENT CHARTED. PT STATED SHE HAD SOME CHEST PAIN WHEN SITTING IN HIGH FOWLERS IN BED, BUT WOULD RESIDE WHEN LAYING BACK DOWN. PT DENIED WANTING NITRO TABS BECAUSE THE PAIN WOULD SHORTLY GO AWAY. PT DENIED HAVING PAIN IN OTHER AREAS. PT SIGNED CONSENT FOR CATH PROCEDURE TOMORROW 06/08. PT STATED SHE DID NOT HAVE QUESTIONS REGARDING PROCEDURE. PT RECIEVING HEPARIN DRIP. FOLLOWING HEPARIN PROTOCOL ORDERED. PT STATED SHE HAS BECOME GASSY OVER THE PAST COUPLE OF DAYS. PT DID HAVE A BM TODAY. PT REFUSED EATING DINNER BECAUSE SHE STATED SHE DID NOT ENJOY THE FOOD. EDUCATED PT ABOUT DIFFERENT OPTIONS FROM THE [place]FET[place]. PT STATED SHE UNDERSTOOD.
[2019-06-07 19:21] VITALS: BP 121/56
--- NOTE | 2019-06-07 19:39 | NUR ---
PT TOLERATING POC AND POC CHANGES. NO DISTRESS NOTED.
[2019-06-08] VITALS (14 sets, daily range): BP systolic 94–129; BP diastolic 44–77
--- NOTE | 2019-06-08 03:15 | NUR ---
ASSUMED CARE OF PATIENT AT 1900. VSS, AFEBRILE. HEPARIN GTT INFUSING PER PROTOCOL, SEE FLOW SHEET. DENIES PAIN, SOA. SEEMED UPSET THAT THE EXACT TIME OF CARDIAC CATH WAS UNKNOWN. REFUSED INSULIN. STATES HER DR HAS DISCONTINUED ATORVASTATIN AND DIDN'T KNOW WHY SHE IS BACK ON IT IN THE HOSPITAL. NPO AFTER MIDNIGHT. ANTICIPATING CATH IN THE AM.
[2019-06-08 06:28] LABS: HEMATOCRIT 39.2 % (37.0-47.0); HEMOGLOBIN 12.8 gm/dL (12.0-15.0); MCHC 32.7 g/dL (28.0-37.0); MCV 85.6 fL (80.0-100.0); RBC 4.58 mil/uL (4.20-5.00); RDW 16.3 % (10.5-14.5)
[2019-06-08 06:46] LABS: CALCIUM 9.6 mg/dL (8.5-10.1); CREATININE 0.8 mg/dL (0.6-1.0); POTASSIUM 4.2 mmol/L (3.5-5.1)
--- NOTE | 2019-06-08 13:32 | CATHLAB ---
[facility] [address] [place] [address] INVASIVE PROCEDURE REPORT Name: JACEY LOZANOEZ Morales Room #: 210-P ADM IN .R.#: [id number] Admission: 06/04/19 Attend Phys: Erick Jerome MD Discharge: Date of : 50 Date of Service: 06/08/19 1332 Report #: [id number] THIS REPORT FOR: //name// APPROVED REPORT Study performed: 06/08/2019 10:54:11 Patient Details Patient Status: In-Patient Room #: 210 The patient is a 69 year-old female Event Personnel [place] Meyer Slip Maker, Yasmin Vargas RTR, IMPORT/EXPORT CLERK Monitor, Sintia Polanco RN, Keya Grace Scrub, Lucila Guerrero RTR Scrub Procedures Performed Art Access - R femoral artery* Left Heart Cath Coronaries, Bypass Grafts 7047875 LHCCORCABG SERAFIN Place w/wo Plasty Single RCA 630301 60347 Initial Mod Sed Same Phys/QHP Gr5y 161345 53966 Mod Sed Same Phys/QHP Ea 923012 Hemostasis with Manual pressure Indication Non-STEMI , Atrial fibrillation, Dyspnea, Unstable angina , Chest pain Risk Factors Hypercholesterolemia, Coronary Artery DiseaseHypertension, Tobacco History () Previous Procedures/Diagnoses Previous CABGPrevious PCI, Previous SC Procedure Narrative The Right Groin^ was infiltrated with 1% Lidocaine subcutaneous anesthesia. A PINNACLE 6FR TIF Sheath #[id number] sheath was inserted into the RFA^. Coronary angiography was performed using coronary diagnostic catheters. The right coronary system was accessed and visualized with a JR4 catheter. The left coronary system was accessed and visualized with a JL4 catheter. The left ventricle was accessed and visualized with a ANGLED PIGTAIL catheter. Left ventricular/Aortic Valve gradient assessed via catheter pullback. Left ventriculogram was performed in 30 degree projection. Pre-demployment femoral angiogram was performed . Hemostasis was [facility] [address] [place] [address] INVASIVE PROCEDURE REPORT Name: MARY LOZANO Andrew Room #: 210-P [facility] IN .R.#: [id number] Admission: 06/04/19 Attend Phys: Erick Jerome MD Discharge: Date of : 50 Date of Service: 06/08/19 1332 Report #: [id number] obtained with manual pressure following sheath removal without any complications. The patient tolerated the procedure well and there were no complications associated with the procedure. There was no hematoma. Intraoperative Conscious Sedation Sedation start time: 11:35 Case end Time: 12:29 Fentanyl 100 mcg Versed 1 mg Fluoro Time: 12.80 minutes Dose: DAP 6858.00 cGycm2 1667 mGy Contrast Type and Amount: Omnipaque 150 ml Coronary Angiography The patient's coronary anatomy is right dominant. Diagnostic Cath Left Main This is a patent vessel, with no flow-limiting lesions. LAD There is a total occlusion at the ostium. There is a patent GAMING graft with an end-to-side anastomosis to the mid LAD. After the anastomosis, there is both antegrade and retrograde blood flow filling the LAD. Diagonal 1 There is an occluded graft to a small diagonal artery. Circumflex There is mild to moderate disease in the proximal segment, 40%. OM1 This is a small-caliber vessel, with no flow-limiting lesions. OM2 This is a moderate size caliber vessel, patent with no flow-limiting lesions. OM3 This is a small-caliber vessel, with no flow-limiting lesions. Right Coronary There are multiple overlapping stents extending from the proximal, mid and distal segments of the RCA. At the distal stent in the distal segment, there is a severe occlusion with filling defect, greater than 95%. There is LEONOR 2 blood flow into a moderate size RPL branch. R PDA There is a severe occlusion in the proximal segment. There is a patent SVG with an end to side anastomosis to the mid segment, filling the mid and distal segments of the PDA. RPLV This is a moderate size caliber vessel, filled via the [place] RCA. The flow is compromised by the severe stenosis in the distal RCA segment. [facility] [address] [place] [address] INVASIVE PROCEDURE REPORT Name: MARTAMARY Room #: 210-P [facility] IN M.R.#: [id number] Admission: 06/04/19 Attend Phys: Erick Jerome MD Discharge: Date of : 50 Date of Service: 06/08/19 1332 Report #: [id number] Left Ventriculography The left ventricle is mildly dilated in size with decreased contractility. The left ventricular ejection fraction is estimated to be 35-40%. There is hypokinesis of the inferior wall. Hemodynamics The aortic pressure is 112/73 mmHg with a mean of 91 mmHg. The left ventricular pressure is 122/12 mmHg with a mean of mmHg. The left ventricular end diastolic pressure is 16 mmHg. PCI Technique Lesion Anticoagulation was achieved with Angiomax. Patient was preloaded with Effient. Percutaneous coronary intervention was performed on the distal right coronary artery. The lesion stenosis prior to intervention was 99% with LEONOR 2 flow. A VISTA 6FR JR 4 #[id number] Guide Catheter was used to engage the ostium. A Luge Wire .014 x 182CM #[id number] Interventional Guidewire was used to cross the lesion. BALLOON DILATION A Balloon catheter TREK RX 2.5 X 12 #[id number] was inserted and inflated up to 10.00atm for 25seconds. STENT DEPLOYMENT A drug-eluting stent XIENCE DANTE RX 2.75 X 12 #[id number] was inserted and inflated up to 16.00atm for 16seconds. POST STENT DEPLOYMENT BALLOON DILATION A Balloon catheter Euphora NC RX 2.75 x 12 #[id number] was inserted and inflated up to 20.00atm for 25seconds. Additional Inflation: 20.00atm for 26seconds. Final angiography reveals 0 % stenosis with LEONOR 3 flow. PCI Technique Lesion 2 Percutaneous coronary intervention was performed on the mid right coronary artery. A VISTA 6FR JR 4 #[id number] Guide Catheter was used to engage the ostium. A Luge Wire .014 x 182CM #[id number] Interventional Guidewire was used to cross the lesion. Post Stent Deployment Balloon Dilation A Balloon catheter Euphora NC RX 2.75 x 12 #[id number] was inserted and inflated up to 20atm for 15seconds. Conclusion [facility] [address] [place] [address] INVASIVE PROCEDURE REPORT Name: MARY LOZANO Room #: 210-P [facility] IN .R.#: [id number] Admission: 06/04/19 Attend Phys: Erick Jerome MD Discharge: Date of : 50 Date of Service: 06/08/19 1332 Report #: [id number] 1. Successful insertion of a drug-eluting stent into the severe restenotic occlusion in the distal RCA stent, with congregation of LEONOR-3 blood flow into the RPL branch. 2. Patent GAMING graft to the LAD. 3. Patent SVG to the mid and distal segments of the PDA. 4. Occluded vein graft to a small diagonal artery. 5. At least moderate segmental LV dysfunction. 6. Recommend antiplatelet therapy and aggressive risk factor management. <ELECTRONICALLY SIGNED> By: [place] Meyer MD 06/08/19 1332 31 31 [place] Meyer MD /INF
--- NOTE | 2019-06-08 17:30 | NUR ---
PT CARE ASSUMED APPROX 0700. PT ALERT AND ORIENTED X4. DENIES PAIN AND SOA. VSS. BS WNL. PT HAD CARDIAC CATH THIS SHIFT. STENT PLACED- SEE PROCEDURE NOTED. PT IN SR SINCE RETURNING FROM SIGNAL MAINTAINER. RIGHT GROIN POST CATH SITE C/D/I. FREE OF HEMATOMA. POST CATH VSS. PT DID EXPERIENCE SOME NAUSEA WITH VOMITING. MEDICATED WITH ANTIEMETIC AND PT REPORTS COMPLETE RELIEF AT THIS TIME. UP WITH STEADY GAIT. DENIES QUESTIONS OR CONCERNS REGARDING POC. POST CATH VS INFUSING PER ORDER. DR VILLANUEVA ROUNDED TO EXAMINE PT AND PT'S GROIN SITE. NO CONCERNS REPORTED FROM HIM. NO DISTRESS NOTED AT THIS TIME.
[2019-06-09 05:00] VITALS: BP 110/46; BP 97/37
[2019-06-09 05:03] LABS: HEMATOCRIT 36.5 % (37.0-47.0); MCH 28.1 pg (26.0-34.0); MCHC 32.8 g/dL (28.0-37.0); MCV 85.7 fL (80.0-100.0); RBC 4.26 mil/uL (4.20-5.00); RDW 16.2 % (10.5-14.5); WBC 9.1 thou/uL (4.0-11.0)
[2019-06-09 05:13] LABS: ALBUMIN 2.7 g/dL (3.4-5.0); CALCIUM 9.1 mg/dL (8.5-10.1); CREATININE 0.8 mg/dL (0.6-1.0); POTASSIUM 4.1 mmol/L (3.5-5.1); TOTAL BILIRUBIN 0.3 mg/dL (<0.1-1.0); TOTAL PROTEIN 5.9 g/dL (6.4-8.2)
--- NOTE | 2019-06-09 05:35 | NUR ---
ASSUMED PT CARE AT 1900 WITH NO SIGN OG DISTRESS NOTED IN PT. PT IS ALERT AND ORIENTED WITH COMPLAINT OF NAUSEA AND VOMITING AFTER DATA SCIENCE AND IOT MANAGER PROCEDURE. AUTOMATIC HEMMER NOTIFIED AND MEDICATION ORDERED. MED ADMINISTERED TO PT. NO FAMILY AT BEDSIDE. ASSESSMENT COMPLETED AND CHARTED. SCHEDULED MEDS ADMINISTERED TO PT. PT TOLERATED PO INTAKE. NO FURTHER NEEDS AT THIS TIME. PT IS STABLE THROUGHOUT THE NIGHT. RIGHT GROIN SITE INTACT. DENIES ANY FURTHER NEEDS AT THIS TIME.
[2019-06-09 08:00] VITALS: BP 97/47
--- NOTE | 2019-06-09 08:17 | EKG ---
[address] [address] ELECTROCARDIOGRAM REPORT Name: JACEY LOZANOEZ Morales Room #: 210-P ADM IN M.R.#: [id number] Admission: 06/04/19 Attend Phys: Erick Jerome MD Discharge: Date of : 50 Report #: [id number] THIS REPORT FOR: //name// [facility] Test Date: 2019-06-08 Test Time: 13:56:36 Pat Name: MARY LOZANO Department: Room: 210 P Gender: F Pharmacognosy Teacher: Oleksandr WAYNE : 1950 Requested By: [place] Meyer Order Number: [id number] MD: Dario Rocha Measurements Intervals [place] Rate: 62 P: 67 ME: 148 QRS: -91 QRSD: 136 T: 50 QT: 465 QTc: 473 Interpretive Statements Sinus rhythm RBBB and LAFB Compared to ECG 06/06/2019 09:35:06 Atrial fibrillation no longer present Electronically Signed On 06-09-2019 8:17:30 CDT by Dario Rocha [email or web address] <ELECTRONICALLY SIGNED> By: Dario Rocha MD, [facility] 06/09/19 0817 1356 1356 Dario Rocha MD, [facility] /EPI
--- NOTE | 2019-06-09 08:42 | EKG ---
[address] [place] [address] ELECTROCARDIOGRAM REPORT Name: JACEY LOZANOEZ Morales Room #: 210-P ADM IN M.R.#: [id number] Admission: 06/04/19 Attend Phys: Erick Jerome MD Discharge: Date of : 50 Report #: [id number] THIS REPORT FOR: //name// [facility] Test Date: 2019-06-09 Test Time: 07:54:25 Pat Name: MARY LOZANO Department: Room: 210 P Gender: F Animal Care Giver: IRON : 1950 Requested By: [place] Meyer Order Number: [id number] MD: Dario Rocha Measurements Intervals [place] Rate: 64 P: -64 MT: 125 QRS: -95 QRSD: 134 T: 23 QT: 457 QTc: 472 Interpretive Statements Sinus rhythm RBBB and LAFB Compared to ECG 06/06/2019 09:35:06 No significant change was found Electronically Signed On 06-09-2019 8:42:36 CDT by Dario Rocha [email or web address] <ELECTRONICALLY SIGNED> By: Dario Rocha MD, [facility] 06/09/19 [phone] 0754 Dario Rocha MD, [facility] /EPI
[2019-06-09] MEDS ORDERED: ASPIR 8181 MG PO (08:54)
[2019-06-09] MEDS ORDERED: LIPITOR40 MG PO ×2 (08:54→13:04)
[2019-06-09] MEDS ORDERED: EFFIENT10 MG PO (08:54)
[2019-06-09 11:46] VITALS: BP 111/49
[2019-06-09 12:25] VITALS: BP 111/49
--- NOTE | 2019-06-09 14:28 | NUR ---
PT CARE ASSUMED APPROX 0700. PT ALERT AND ORIENTED X4. DENIES PAIN AND SOA. VSS. RIGHT GROIN POST CATH SITE C/D/I AND FREE OF HEMATOMA. DISCHARGED AT THIS TIME. DISCHARGE PAPERWORK REVIEWED WITH PT AND SHE DENIES ANY QUESTIONS OR CONCERNS WITH DISCHARGE PLAN. IV OUT, TELE BOX OFF. THIS NURSE ESCORTED PT OUT VIA WHEELCHAIR.
--- NOTE | 2019-06-10 21:50 | HC ---
[facility] [place] [address] [place] [address] CONSULTATION Name: MARY LOZANO Room #: 210-P [facility] IN M.R.#: [id number] Admission: 06/04/19 Attend Phys: Erick Jerome MD Discharge: 06/09/19 Date of : 50 Report #: [id number] THIS REPORT FOR: //name// CC: Bossman Jerome DATE OF SERVICE: 06/06/2019 HISTORY OF PRESENT ILLNESS: This is a patient who is well known to me from current therapy of recurrent/metastatic adenocarcinoma of the colon. She was due for treatment this past Saturday, called and rescheduled for next week as she was not feeling well. In the interim, she was admitted with findings of increasing chest pain and a known prior history of multiple cardiac stenting procedures and atherosclerotic heart disease. Her cancer history dates to [address] Martin performed a colon resection and she was initially followed postoperatively with no further therapy. She unfortunately was found to have recurrent metastatic disease a year ago and initially received modified FOLFOX6 Avastin. This was unfortunately poorly tolerated and led to change to Keytruda. She last received therapy almost 4 weeks ago. Recent followup scan showed her to be in a good partial remission. Her earlier complaints of pain have also improved indicating response to treatment. PAST MEDICAL HISTORY: In addition to her previous bypass grafting is positive for medically managed hypertension and hyperlipidemia along with exogenous obesity. PAST SURGICAL HISTORY: She had prior hysterectomy and hand surgery. ALLERGIES: PLAVIX, PENICILLIN, BRILINTA, ZOLPIDEM, LATEX and SULFA. SOCIAL HISTORY: She is a reformed smoker though evidently gets recently started smoking again. FAMILY HISTORY: Noncontributory. REVIEW OF SYSTEMS: Positive for fatigue along with her recent chest pain. PHYSICAL EXAMINATION: HEENT: Patient is normocephalic except for eyeglasses. NECK: Supple. CHEST: Clear. CARDIOVASCULAR: Normal S1, S2. ABDOMEN: Shows no suspicious masses. [facility] [address] [place] [address] CONSULTATION Name: MARY LOZANO Room #: [address] [place] [address] [facility].#: [id number] Admission: 06/04/19 Attend Phys: Erick Jerome MD Discharge: 06/09/19 Date of : 50 Report #: [id number] EXTREMITIES: No clubbing, cyanosis, edema. SKIN: Shows normal turgor. NEUROLOGIC: No focal localized signs. PSYCHIATRIC: Not agitated or confused. LYMPHATICS: Revealed no palpable supraclavicular adenopathy. LABORATORY DATA: Reviewed and she is not neutropenic. This would be expected from her current PD-L1 antibody therapy. I will cloud over her recent CT scan from showing a decrease in previous adenopathy. ASSESSMENT: Known recurrent/metastatic adenocarcinoma of the colon on Keytruda with last treatment almost 4 weeks ago. PLAN: She is scheduled for repeat cardiac catheterization and current therapy will be held until this has been accomplished and we assess her further treatment. I have told her I do not think chest pain reflects anything to do with either her known metastatic colon cancer or treatment. Thanks for notifying me of her hospitalization and allowing me to participate in her care. <ELECTRONICALLY SIGNED> By: Laura Fischer MD 06/10/19 2150 1145 1556 Laura Fischer MD /nt
== END 2019-06-09 14:30 | disposition home or self-care (01) | DRG 246 ==
LOC: ER 20:16 → EROBS 22:07 → 2N 22:07 → ENTRNSPT 06-09 13:53 → EDTRNSPTSTS 06-09 14:03 → 2N 06-09 14:30
PROVIDERS: Emergency Medicine; Internal Medicine Cardiovascular Disease; Nurse Practitioner Acute Care; ADMIT Internal Medicine
PROC: B2111ZZ Fluoroscopy of Multiple Coronary Arteries using Low Osmolar Contrast (ICD-10-PCS; principal; 2019-06-08)
PROC: B2151ZZ Fluoroscopy of Left Heart using Low Osmolar Contrast (ICD-10-PCS; principal; 2019-06-08)
PROC: 4A023N7 Measurement of Cardiac Sampling and Pressure, Left Heart, Percutaneous Approach (ICD-10-PCS; principal; 2019-06-08)
PROC: 027034Z Dilation of Coronary Artery, One Artery with Drug-eluting Intraluminal Device, Percutaneous Approach (ICD-10-PCS; principal; 2019-06-08)
PROC: B2181ZZ Fluoroscopy of Left Internal Mammary Bypass Graft using Low Osmolar Contrast (ICD-10-PCS; principal; 2019-06-08)
PROC: B2131ZZ Fluoroscopy of Multiple Coronary Artery Bypass Grafts using Low Osmolar Contrast (ICD-10-PCS; principal; 2019-06-08)
DX: I21.4 Non-ST elevation (NSTEMI) myocardial infarction (principal); E43 Unspecified severe protein-calorie malnutrition; J44.9 Chronic obstructive pulmonary disease, unspecified; I25.110 Atherosclerotic heart disease of native coronary artery with unstable angina pectoris; K57.90 Diverticulosis of intestine, part unspecified, without perforation or abscess without bleeding; E11.9 Type 2 diabetes mellitus without complications; E78.5 Hyperlipidemia, unspecified; M10.9 Gout, unspecified; E83.42 Hypomagnesemia; I48.2 Chronic atrial fibrillation; E66.09 Other obesity due to excess calories; Z68.25 Body mass index [BMI] 25.0-25.9, adult; I25.2 Old myocardial infarction; Z90.710 Acquired absence of both cervix and uterus; Z87.891 Personal history of nicotine dependence; Z90.49 Acquired absence of other specified parts of digestive tract; Z95.5 Presence of coronary angioplasty implant and graft; Z95.1 Presence of aortocoronary bypass graft; Z85.038 Personal history of other malignant neoplasm of large intestine; Z79.01 Long term (current) use of anticoagulants; Z79.899 Other long term (current) drug therapy; Z88.0 Allergy status to penicillin; Z88.2 Allergy status to sulfonamides; Z88.8 Allergy status to other drugs, medicaments and biological substances; Z91.040 Latex allergy status; Z83.3 Family history of diabetes mellitus; Z82.49 Family history of ischemic heart disease and other diseases of the circulatory system; Z83.79 Family history of other diseases of the digestive system
CPT/HCPCS: 10081

== ENCOUNTER 2019-06-24 17:40 | Inpatient (IN) | payer OTHER ==
[~2019-06-24] VITALS: Ht 152.4 cm; Wt 54.4 kg
[2019-06-24 17:40] VITALS: BP 178/92
[~2019-06-24 17:40] MED LIST changes: +LIPITOR40 MG PO; +LOPERAMIDE 2 MG2 M1 PO; +SPIRIVA INH
[2019-06-24 17:57] LABS: URINE BILIRUBIN NEGATIVE (Negative); URINE BLOOD TRACE (Negative); URINE CLARITY CLEAR; URINE COLOR YELLOW; URINE GLUCOSE-RANDOM* NEGATIVE (Negative); URINE KETONES NEGATIVE (Negative); URINE LEUKOCYTES NEGATIVE (Negative); URINE NITRITE NEGATIVE (Negative); URINE PROTEIN (DIPSTICK) NEGATIVE (Negative); URINE SPECIFIC GRAVITY 1.025 (1.005-1.035); URINE UROBILINOGEN 0.2 E.U./dl (0.2-1.0)
[2019-06-24 18:26] LABS: ABSOLUTE NEUTROPHILS 9.8 thou/uL (1.4-8.2); BASOPHILS 0.8 % (0.0-2.0); EOSINOPHILS 0.6 % (0.0-3.0); HEMOGLOBIN 13.2 gm/dL (12.0-15.0); LYMPHOCYTES 10.5 % (24.0-44.0); MCH 28.1 pg (26.0-34.0); MCHC 33.1 g/dL (28.0-37.0); MCV 84.9 fL (80.0-100.0); MONOCYTES 6.3 % (1.0-8.0); PLATELET COUNT 355 thou/uL (150-400); POLYS 81.8 % (36.0-66.0); RBC 4.71 mil/uL (4.20-5.00); RDW 15.8 % (10.5-14.5)
[2019-06-24 18:35] LABS: CALCIUM 9.7 mg/dL (8.5-10.1); CREATININE 0.8 mg/dL (0.6-1.0); POTASSIUM 3.7 mmol/L (3.5-5.1)
[2019-06-24 18:41] LABS: ALBUMIN 3.3 g/dL (3.4-5.0); TOTAL BILIRUBIN 0.3 mg/dL (<0.1-1.0); TOTAL PROTEIN 7.4 g/dL (6.4-8.2)
[2019-06-24] MEDS ORDERED: REGLAN 10 MG TA10 MG PO (21:51)
[2019-06-24] MEDS ORDERED: NORVASC5 MG PO (21:53)
[2019-06-24 21:54] VITALS: BP 201/90
[2019-06-24] MEDS ORDERED: LISINOPRIL10 MG PO (21:54)
[2019-06-24 22:07] VITALS: BP 201/90
[2019-06-24 23:06] VITALS: BP 218/101
[2019-06-25] VITALS (7 sets, daily range): BP systolic 150–213; BP diastolic 74–111
--- NOTE | 2019-06-25 01:59 | NUR ---
PT ARRIVED ON UNIT FROM ED. PT ALERT AND ORIENTED. ASSESSMENT AND ADMISSIN COMPLETE. HIGH BLOOD PRESSURE, CALLED INSURANCE CLAIM AUDITOR FOR ORDERS. ALL OTHER VSS. DENIES PAIN. REPORTS NAUSEA. REFUSED ZOFRAN, OFFERED MULTIPLE TIMES. PT STATES "IT DOSEN'T WORK." CALLED INSURANCE CLAIM AUDITOR FOR DIFFERENT ORDERS. PT UP AD HERI. CALL LIGHT AND PERSONAL BELONINGS WITHIN REACH, WILL CONTINUE POC UNTIL EOS.
[2019-06-25 05:20] LABS: HEMATOCRIT 43.4 % (37.0-47.0); HEMOGLOBIN 14.1 gm/dL (12.0-15.0); MCH 27.4 pg (26.0-34.0); MCHC 32.5 g/dL (28.0-37.0); MCV 84.2 fL (80.0-100.0); RBC 5.15 mil/uL (4.20-5.00); RDW 15.6 % (10.5-14.5)
[2019-06-25 05:33] LABS: CALCIUM 9.6 mg/dL (8.5-10.1); CREATININE 0.7 mg/dL (0.6-1.0); POTASSIUM 3.2 mmol/L (3.5-5.1)
--- NOTE | 2019-06-25 06:19 | NUR ---
ASSUMED CARE OF PT AT 0520HRS. PT IS AOX4 AND UP AD HERI. PT HAS ELEVATED BP AND HR AND GEOTHERMAL HEAT PUMP MACHINIST WAS NOTIFIED. PT HAS IRREGULAR ST RHYTHM ON TELE. PT IS COMPLAINING OF SOME NAUSEA BUT OTHERWISE ASYMPTOMATIC. WILL CONTINUE TO MONITOR.
--- NOTE | 2019-06-25 08:36 | EKG ---
[place] [address] [place] [address] ELECTROCARDIOGRAM REPORT Name: MARTAMARY Morales Room #: 361-P ADM IN M.R.#: [id number] Admission: 06/24/19 Attend Phys: Nayla Thomas Discharge: Date of : 50 Report #: [id number] THIS REPORT FOR: //name// [facility] Test Date: 2019-06-24 Test Time: 18:04:09 Pat Name: MARY LOZANO Department: Room: [facility] Gender: F Absorption Operator: LIEN : 1950 Requested By: Miguel Phillips Order Number: [id number] MD: Dany Marinelli Measurements Intervals [place] Rate: 94 P: 27 VT: 132 QRS: -106 QRSD: 132 T: 17 QT: 399 QTc: 500 Interpretive Statements Sinus rhythm Multiple premature complexes, vent & supraven RBBB and LAFB Compared to ECG 06/09/2019 07:54:25 No significant changes Electronically Signed On 06-25-2019 8:36:22 CDT by Dany Marinelli [email or web address] <ELECTRONICALLY SIGNED> By: Dany Marinelli MD 06/25/1936 03 03 Dany Marinelli MD /ELEUTERIO
--- NOTE | 2019-06-25 08:40 | EKG ---
[address] [place] [address] ELECTROCARDIOGRAM REPORT Name: MARTAMARY Morales Room #: 361-P ADM IN M.R.#: [id number] Admission: 06/24/19 Attend Phys: Nayla Thomas Discharge: Date of : 50 Report #: [id number] THIS REPORT FOR: //name// [facility] Test Date: 2019-06-25 Test Time: 04:10:11 Pat Name: MARY LOZANO Department: Room: 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
--- NOTE | 2019-06-25 10:40 | NUR ---
ASSESSMENT: CM REVIEWED CHART AND MET WITH PATIENT AT THE BEDSIDE. PT WAS ADMITTED WITH COLITIS. SHE IS ALERT AND ORIENTED X4. PT REPORTS SHE LIVES IN AN APT ALONE. PT REPORTS SHE HAS ABOUT TWO STEPS TO GET INTO HER APT WITH NO HANDRAILS AND NO STEPS INSIDE. PT REPORTS SHE AMBULATES INDEPENDENTLY AND DOES NOT HAVE ANY DME OR THE NEED FOR IT. PT REPORTS SHE HAS HAD [facility] IN THE PAST. PT REPORTS SHE IS NORMALLY INDEPENDENT AND DOES NOT FEEL SHE WILL NEED HH AT DISCHARGE. CM DISCUSSED ROLE. CM WILL CONTINUE TO FOLLOW TO ASSIST NEEDED.
--- NOTE | 2019-06-25 18:14 | NUR ---
pt's assessment has done, pt is A&OX3, PT'S n/v has improved, pt is continuing iv fluid and iv abt, RN has reported to dr about pt's HR 120-150 and K 3.2, new order received, pt has slowly meeting care plan goals.
[2019-06-26 00:29] VITALS: BP 140/74
[2019-06-26 04:06] VITALS: BP 140/74
[2019-06-26 05:53] LABS: HEMOGLOBIN 14.3 gm/dL (12.0-15.0); MCH 28.5 pg (26.0-34.0); MCV 83.9 fL (80.0-100.0); RDW 15.5 % (10.5-14.5)
[2019-06-26 06:07] LABS: CALCIUM 9.4 mg/dL (8.5-10.1); CREATININE 0.7 mg/dL (0.6-1.0); MAGNESIUM 1.6 mg/dL (1.8-2.4); POTASSIUM 3.6 mmol/L (3.5-5.1)
[2019-06-26 07:50] VITALS: BP 141/91
[2019-06-26 11:11] VITALS: BP 152/85
[2019-06-26 15:26] VITALS: BP 127/72
--- NOTE | 2019-06-26 16:07 | NUR ---
SW reviewed chart and spoke with nursing and attending physician. Pt is progressing towards goals for discharge. Weekend discharge anticipated. Pt to have CT scan on Saturday and possibly a colonoscopy on Saturday or as an outpatient. Pt has home O2 in place through [facility]. No SW discharge needs identified at this time, but is available to assist should needs arise.
[2019-06-26 18:44] VITALS: BP 124/64
--- NOTE | 2019-06-26 20:02 | NUR ---
pt is A&OX3, PT is continuing iv fluid, iv abt , pt's N/V has some improved , pt is continuing iv diltiazem 5-10mg/hr to keep HR 80-100, pt's vs and o2sat are stable , RN has reported to next shift to keep eye on pt.
--- NOTE | 2019-06-27 02:57 | NUR ---
PATIENT ASSESSED AND IS ALERT X 4. SKIN WARM AND DRY. CAME IN WITH DIARRHEA AND NAUSEA. PATIENT IS STILL NAUSEATED. ZOFRAN DOES NOT HELP. IS ON A CARDIZEM GTT AT 10 VS STABLE BP GOOD AND HR IS 61. RIGHT AC PATENT WITH IV FLUIDS AND ANTIBIOTCS CONT. NO SKIN ISSUES. TELE- SHOWS A-FIB CONTROLLED. TAKES MEDICATION WHOLE AND SWOLLOWS WELL. REFUSED ZOFRAN AT 0014. BUT THEN WANTED IT AT 0100. HAS A POOR APPETITE. CARDIZEM GTT AT 10 WELL TITRATED. IS IN ISOLATION DUE TO POSSIBLE C-DIFF. PATIENT STATED" THAT PHENEGRAN WORKS THE ZOFRAN DON'T. 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 CONT PLAN OF CARE. WAS NAUSEATED BUT DID NOT THROW UP.
--- NOTE | 2019-06-27 04:10 | NUR ---
PATIENT HR WAS AT 60 THEN TO 55.AT 0100.MONITORED AND THEN ABOUT 0200 OR 0230 HR WENT TO 33. CARDIZEM GTT DECREASED THEN ABOIUT 02 AND 0230 HR WAS DECREASED TO 33. CARDIZEM GTT STOPPED. HR AT PRESENT TIME IS 66 AT 0412. DENIES ANY PAIN OR DISCOMFORT EXCEPT SOME NAUSEA.
[2019-06-27 04:58] VITALS: BP 138/71
[2019-06-27 05:44] LABS: ALBUMIN 2.5 g/dL (3.4-5.0); CALCIUM 8.7 mg/dL (8.5-10.1); CREATININE 0.8 mg/dL (0.6-1.0); MAGNESIUM 1.9 mg/dL (1.8-2.4); PHOSPHORUS 2.5 mg/dL (2.5-4.9); POTASSIUM 3.2 mmol/L (3.5-5.1)
--- NOTE | 2019-06-27 06:19 | NUR ---
Patient HR still in the 60-70"s. Voices no needs. Refused her zofran this am. Cardizem GTT still remains off. Cont to monitor.
--- NOTE | 2019-06-27 06:26 | NUR ---
ALLISON SANCHEZ MANAGER ADVANCED CALLED ON LOW NA OF 130 AND k+ LEVEL OF 3.2. LEFT MESSAGE ON HER VOICE MAIL. AWAITING NEW ORDERS.
[2019-06-27 07:37] VITALS: BP 132/71
[2019-06-27 16:43] VITALS: BP 144/82
--- NOTE | 2019-06-27 19:30 | NUR ---
SHE CONT TO PROGRESS TOWARDS DISCHARGE GOALS. DIET UPGRADED TO FULL LIQUID. WILL UPGRADE TO REG IN AM IF SHE DOES NOT HAVE N/V TONIGHT. SHE HAS REFUSED NAUSEA MEDS ALL DAY STATING SHE DOES NOT HAVE IT ANYMORE. SHE IS NOW SLEEPING. WILL CONT WITH PLAN OF CARE.
--- NOTE | 2019-06-28 00:26 | NUR ---
ASSUMED PT CARE 1899. PT ALERT AND ORIENTED. REASSESSMENT COMPLETE. VSS. TELE IN PLACE. DENIES PAIN. DENIES N/V. CALL LIGHT AND PERSONAL BELONIGNS WITHIN REACH, WILL CONTINUE POC UNTIL EOS.
[2019-06-28 04:00] VITALS: BP 132/55
[2019-06-28 05:24] LABS: ALBUMIN 2.6 g/dL (3.4-5.0); CALCIUM 8.7 mg/dL (8.5-10.1); CREATININE 0.7 mg/dL (0.6-1.0); PHOSPHORUS 1.8 mg/dL (2.5-4.9); POTASSIUM 3.2 mmol/L (3.5-5.1)
[2019-06-28 08:04] VITALS: BP 159/92
[2019-06-28] MEDS ORDERED: LEVAQUIN 500 M500 M2 PO (10:26)
[2019-06-28] MEDS ORDERED: FLAGYL500 M1 PO (10:27)
[2019-06-28 11:02] VITALS: BP 159/92
--- NOTE | 2019-06-28 11:58 | NUR ---
ASSUMED CARE OF PT AT 0700. PT ALERT AND ORIENTED, IN NO ACUTE DISTRESS. REPORTS FEELING BETTER. DENIES PAIN. UP AD HERI. TOLERATING DIET WELL. OK FOR DISCHARGE PER PHYSICIAN. VITALS AND SUGARS WNL. ANTICIPATE D/C AT 1300.
[2019-06-28 11:59] VITALS: BP 159/92
== END 2019-06-28 13:45 | disposition home or self-care (01) | DRG 871 ==
LOC: ER 17:40 → 3W 21:48 → 4E 21:48 → EROBS 21:48 → 4E 22:19 → 3W 22:44
PROVIDERS: Emergency Medicine; Nurse Practitioner Family; ADMIT Hospitalist
DX: A41.9 Sepsis, unspecified organism (principal); K57.33 Diverticulitis of large intestine without perforation or abscess with bleeding; A09 Infectious gastroenteritis and colitis, unspecified; E44.0 Moderate protein-calorie malnutrition; E87.1 Hypo-osmolality and hyponatremia; K52.1 Toxic gastroenteritis and colitis; J44.9 Chronic obstructive pulmonary disease, unspecified; I10 Essential (primary) hypertension; E11.9 Type 2 diabetes mellitus without complications; I49.3 Ventricular premature depolarization; I45.10 Unspecified right bundle-branch block; D64.9 Anemia, unspecified; K62.89 Other specified diseases of anus and rectum; I48.0 Paroxysmal atrial fibrillation; I08.1 Rheumatic disorders of both mitral and tricuspid valves; M10.9 Gout, unspecified; T45.1X5A Adverse effect of antineoplastic and immunosuppressive drugs, initial encounter; E78.5 Hyperlipidemia, unspecified; I25.10 Atherosclerotic heart disease of native coronary artery without angina pectoris; Z90.710 Acquired absence of both cervix and uterus; Z90.49 Acquired absence of other specified parts of digestive tract; Z90.89 Acquired absence of other organs; Z79.899 Other long term (current) drug therapy; Z79.82 Long term (current) use of aspirin; Z88.2 Allergy status to sulfonamides; Z85.038 Personal history of other malignant neoplasm of large intestine; I25.2 Old myocardial infarction; Z95.1 Presence of aortocoronary bypass graft; Z95.5 Presence of coronary angioplasty implant and graft; Z88.8 Allergy status to other drugs, medicaments and biological substances; Z91.048 Other nonmedicinal substance allergy status; Z88.0 Allergy status to penicillin; Z87.891 Personal history of nicotine dependence; Z91.040 Latex allergy status; Z83.3 Family history of diabetes mellitus; Z84.89 Family history of other specified conditions; Z79.01 Long term (current) use of anticoagulants; Y92.89 Other specified places as the place of occurrence of the external cause; Z99.81 Dependence on supplemental oxygen; Z68.23 Body mass index [BMI] 23.0-23.9, adult
CPT/HCPCS: 10084; 10879

== ENCOUNTER → 2019-07-27 | Outpatient (CLI) | payer OTHER ==
[~2019-07-27] VITALS: Ht 152.4 cm; Wt 55.3 kg
[~2019-07-27] MED LIST changes: +FLAGYL500 M1 PO; +KEYTRUDA100 MG/4 M IV; +LEVAQUIN 500 M500 M2 PO; +TYLENOL PM EX-1 EACH PO; +ZANTAC 7575 MG PO
--- NOTE | 2019-07-29 10:07 | PATH ---
[facility] [address] [place] [address] PATHOLOGY RPT PROCEDURE Name: JACEY LOZANOEZ Morlaes [id number] Admission: 07/27/19 Date of : 50 Discharge: Report #: [id number] Path Case #: [id number] [facility] Accession Number: [id number] . 01 Material submitted: . PART A: stomach - BX GASTRITIS PART B: colon - RANDOM COLON BX . 01 Clinical history: . abdominal pain, weight loss, history colon cancer, gastritis, colitis A. Rule out H. pylori B. Rule out IBD, infectious or medicine induced colitis . 02 Diagnosis: A. Gastric mucosa, gastritis rule out H. pylori, endoscopic biopsy: - Mild reactive gastropathy. - Negative for intestinal metaplasia or atrophy. - Negative for Helicobacter pylori (properly controlled immunohistochemical stain performed). . B. Large intestine, random colon, endoscopic biopsy: - Moderate chronic active colitis associated with crypt abscess formation, see comment. - Negative for dysplasia or malignancy. . (IUV:david; 07/28/2019) [facility]BR 07/28/2019 1338 Local . 02 Comment: Examination shows a markedly expanded lamina propria underneath acute cryptitis, and without active ulceration (not identified within the biopsy tissue). Multiple crypt abscesses are present. Subtle architectural abnormalities are identified as well. There are no granulomata, or viral inclusions present. Overall features may be suggestive of an active inflammatory bowel disease. Predominance of eosinophils is identified within the lamina propria infiltrate, therefore, medication/drug-induced reaction cannot be excluded. Explosive ulcers suggestive of C. difficile colitis are not identified. Please correlate clinically and followup as indicated. (IUV:brand executive; 07/28/2019) . 02 Electronically signed: . Ana María Posey MD, Pathologist NPI- [id number] . 01 Gross description: . A. The specimen is received in formalin, labeled "Iris Lozano, [place] [address] PATHOLOGY RPT PROCEDURE Name: IRIS LOZANO Room #: REG [facility].#: [id number] Admission: 07/27/19 Date of : 50 Discharge: Report #: [id number] Path Case #: [id number] gastritis, rule out H. pylori", are five irregular fragments of rowe soft tissue measuring ranging from 0.1 cm up to 0.4 cm in greatest dimension and measuring 0.7 x 0.5 x 0.2 cm in aggregate. Entirely submitted in A1. . B. The specimen is received in formalin, labeled "Emiliano, [place], random colon BX", are multiple irregular fragments of roew soft tissue measuring 0.7 x 0.7 x 0.1 cm in aggregate. Entirely submitted in B1. ([facility]; 07/27/2019) [facility] 07/27/20192022 Local . 02 Pathologist provided ICD-10: K31.9, K52.9, K63.0 . 02 CPT . 330768, 640122, U99797 Specimen Comment: A courtesy copy of this report has been sent to Specimen Comment: [phone], . Specimen Comment: Report sent to / DR ROPER Specimen Comment: Report sent to Performed at: [address], [place] [id number] MD Roel Case MD Phone: [phone] Performed at: [address] [id number] MD Ana María Posey MD Phone: [phone]
== END | disposition home or self-care (01) ==
LOC: GI 08:56
DX: K52.9 Noninfective gastroenteritis and colitis, unspecified (principal); K31.9 Disease of stomach and duodenum, unspecified; K63.0 Abscess of intestine; K57.30 Diverticulosis of large intestine without perforation or abscess without bleeding; Z98.0 Intestinal bypass and anastomosis status; D64.9 Anemia, unspecified; I10 Essential (primary) hypertension; E78.00 Pure hypercholesterolemia, unspecified; I25.2 Old myocardial infarction; I48.91 Unspecified atrial fibrillation; J44.9 Chronic obstructive pulmonary disease, unspecified; M10.9 Gout, unspecified; E11.9 Type 2 diabetes mellitus without complications; Z85.038 Personal history of other malignant neoplasm of large intestine; K21.9 Gastro-esophageal reflux disease without esophagitis; Z87.19 Personal history of other diseases of the digestive system; Z90.710 Acquired absence of both cervix and uterus; Z79.01 Long term (current) use of anticoagulants; Z95.1 Presence of aortocoronary bypass graft; Z98.890 Other specified postprocedural states; Z87.891 Personal history of nicotine dependence
CPT/HCPCS: 62110; 62900

== ENCOUNTER → 2019-09-04 | Outpatient (CLI) | payer OTHER | LOC: RAD 11:47 | DX: J84.10 Pulmonary fibrosis, unspecified (principal); R91.1 Solitary pulmonary nodule; J98.4 Other disorders of lung ==

== ENCOUNTER → 2019-09-15 | Outpatient (CLI) | payer OTHER | LOC: ULTRA 07:52 | DX: R17 Unspecified jaundice (principal); Z90.49 Acquired absence of other specified parts of digestive tract ==

== ENCOUNTER → 2019-09-18 | Outpatient (CLI) | payer OTHER | LOC: MRI 09:10 | DX: J90 Pleural effusion, not elsewhere classified (principal); R59.9 Enlarged lymph nodes, unspecified; N28.89 Other specified disorders of kidney and ureter ==

== ENCOUNTER → 2019-11-20 | Outpatient (CLI) | payer OTHER | LOC: SJCVC 10:21 | DX: I25.10 Atherosclerotic heart disease of native coronary artery without angina pectoris (principal); I10 Essential (primary) hypertension; I48.91 Unspecified atrial fibrillation; J44.9 Chronic obstructive pulmonary disease, unspecified; E78.00 Pure hypercholesterolemia, unspecified; Z79.899 Other long term (current) drug therapy; Z88.8 Allergy status to other drugs, medicaments and biological substances ==

== ENCOUNTER → 2020-05-27 | Outpatient (CLI) | payer OTHER | LOC: SJCVCIMAG 09:47 | PROVIDERS: ATTEND Internal Medicine Cardiovascular Disease | DX: I08.8 Other rheumatic multiple valve diseases (principal); I45.10 Unspecified right bundle-branch block; I11.9 Hypertensive heart disease without heart failure; R94.31 Abnormal electrocardiogram [ECG] [EKG]; I25.810 Atherosclerosis of coronary artery bypass graft(s) without angina pectoris; I25.10 Atherosclerotic heart disease of native coronary artery without angina pectoris; I48.0 Paroxysmal atrial fibrillation; J44.9 Chronic obstructive pulmonary disease, unspecified; E78.00 Pure hypercholesterolemia, unspecified; E11.9 Type 2 diabetes mellitus without complications; E78.5 Hyperlipidemia, unspecified; F17.211 Nicotine dependence, cigarettes, in remission; Z79.4 Long term (current) use of insulin; Z79.899 Other long term (current) drug therapy; Z95.1 Presence of aortocoronary bypass graft ==

== ENCOUNTER → 2021-02-17 | Outpatient (CLI) | payer OTHER | LOC: SJCVC 13:32 | PROVIDERS: ATTEND Internal Medicine Cardiovascular Disease | DX: R94.31 Abnormal electrocardiogram [ECG] [EKG] (principal); I45.10 Unspecified right bundle-branch block; I25.10 Atherosclerotic heart disease of native coronary artery without angina pectoris; J44.9 Chronic obstructive pulmonary disease, unspecified; I10 Essential (primary) hypertension; E78.00 Pure hypercholesterolemia, unspecified; E11.9 Type 2 diabetes mellitus without complications; I48.0 Paroxysmal atrial fibrillation; F17.211 Nicotine dependence, cigarettes, in remission; Z95.1 Presence of aortocoronary bypass graft; Z95.5 Presence of coronary angioplasty implant and graft; Z88.0 Allergy status to penicillin; Z88.8 Allergy status to other drugs, medicaments and biological substances; Z79.82 Long term (current) use of aspirin; Z79.899 Other long term (current) drug therapy ==

== ENCOUNTER → 2021-03-14 | Outpatient (CLI) | payer OTHER | LOC: RAD 09:21 → SJCVCIMAG 09:21 | PROVIDERS: ATTEND Pediatrics | DX: R06.00 Dyspnea, unspecified (principal); R06.02 Shortness of breath; R05 Cough; J98.11 Atelectasis; Z88.0 Allergy status to penicillin; Z88.2 Allergy status to sulfonamides; Z88.8 Allergy status to other drugs, medicaments and biological substances ==

== ENCOUNTER → 2021-08-28 | Outpatient (CLI) | payer OTHER | LOC: SJCVC 10:19 | PROVIDERS: ATTEND Internal Medicine Cardiovascular Disease | DX: I45.10 Unspecified right bundle-branch block (principal); R94.31 Abnormal electrocardiogram [ECG] [EKG]; I48.91 Unspecified atrial fibrillation; I48.0 Paroxysmal atrial fibrillation; J44.9 Chronic obstructive pulmonary disease, unspecified; I25.10 Atherosclerotic heart disease of native coronary artery without angina pectoris; I10 Essential (primary) hypertension; E11.9 Type 2 diabetes mellitus without complications; E78.5 Hyperlipidemia, unspecified; E78.00 Pure hypercholesterolemia, unspecified; Z88.2 Allergy status to sulfonamides; Z88.1 Allergy status to other antibiotic agents; Z88.0 Allergy status to penicillin; Z91.040 Latex allergy status; Z79.82 Long term (current) use of aspirin; Z79.899 Other long term (current) drug therapy; Z79.4 Long term (current) use of insulin; Z87.891 Personal history of nicotine dependence; Z95.818 Presence of other cardiac implants and grafts; Z95.1 Presence of aortocoronary bypass graft ==

== ENCOUNTER → 2021-10-02 | Outpatient (CLI) | payer OTHER | LOC: SJCVC 12:00 | PROVIDERS: ATTEND Internal Medicine Cardiovascular Disease | DX: E78.00 Pure hypercholesterolemia, unspecified (principal) ==